=== PATIENT | female | born 1995 | race Caucasian/White ===

== ENCOUNTER → 2017-11-29 14:25 | Observation (INO) ==
[2017-11-29 12:20] LABS: Bilirubin,Urine Negative (Negative); Blood,Urine Negative (Negative); Clarity,Urine Cloudy (Clear); Color,Urine Dark Yellow (Yellow); Glucose,Urine (UA) Normal (Normal); Ketones,Urine Negative (Negative); Leukocyte Esterase,Urine Moderate (Negative); Nitrite,Urine Negative (Negative); PH,Urine 6.5 pH Units (5.0-8.0); Protein,Urine Trace mg/dL (Neg-Trace); Specific Gravity,Urine 1.025 (1.010-1.025); Urobilinogen,Urine Normal (Normal)
[2017-11-29 12:25] LABS: Bacteria,Urine Many per hpf (None-Few); Hyaline Casts,Urine Few per lpf (None-Few); Squamous Epithelial Cell,Urine Many per lpf (None-Few); WBC,Urine 15-30 per hpf (0-3)
[2017-11-29 12:43] LABS: Calcium Oxalate Crystals,Urine Present; RBC,Urine 0-3 per hpf (0-3)
[2017-11-29 12:50] LABS: Amphetamine Screen,Urine Negative ng/mL (Cutoff=1000); Barbiturate Screen,Urine Negative ng/mL (Cutoff=200); Benzodiazepines Screen,Urine Negative ng/mL (Cutoff=200); Cannabinoid Screen,Urine Negative ng/mL (Cutoff = 50); Cocaine Screen,Urine Negative ng/mL (Cutoff= 300); Opiate Screen,Urine Negative ng/mL (Cutoff=300); Phencyclidine Screen,Urine Negative ng/mL (Cutoff=25)
--- NOTE | 2017-11-29 14:22 | OB/GYN Progress Note ---
Date of Encounter: 11/29/17 Time of Encounter: 14:17 - Assessment and Plan (1) 31 weeks gestation of Current Visit: Yes Status: Acute (2) Cramping complicating , antepartum Current Visit: Yes Status: Acute Cervical exam shows cervix closed thick and high, (3) Decreased movement Current Visit: Yes Status: Acute Reactive tracing on monitor, patient started to feel movement in triage. Discharged home with labor and when to return to triage precautions. Patient verbalizes understanding Qualifiers: Fetus number: single or unspecified fetus Trimester: third trimester Qualified Code(s): O36.8130 - Decreased movements, third trimester, not applicable or unspecified Subjective - Subjective Interval history: 31+6 weeks gestation presents to triage with complaints of decreased movement and cramping. Patient said she has had decreased movement over the last 48 hours, cramping began this morning and is intermittent and feels like menstrual cramps, denies using any vaginal bleeding or leaking of fluid Antepartum ROS: movement normal, contractions (Cramping), no loss of fluid , no vaginal bleeding Objective - Vital Signs Vital Signs: Intake and Output 11/28/17 11/29/17 11/29/17 23:59 07:59 15:59 Other: Weight 129 kg Patient Weight 11/29/17 23:59 Weight 129 kg - Exam FHR: auscultation normal FHR comments: Baseline 135 Abdomen: Present: soft, gravid Cervical dilation: Closed/thick/high - Labs Labs: Abnormal lab results Urine Clarity Cloudy (Clear) A 11/29/17 10:59 Ur Leukocyte Esterase Moderate (Negative) H 11/29/17 10:59 Urine Microscopic WBC 15-30 per hpf (0-3) H 11/29/17 10:59 Ur Squamous Epith Cells Many per lpf (None-Few) H 11/29/17 10:59 Urine Bacteria Many per hpf (None-Few) H 11/29/17 10:59 Ur Culture Indicated? NO. (NO) A 11/29/17 10:59
== END | disposition home or self-care (01) ==
LOC: 1NENULAB
PROVIDERS: ADMIT Advanced Practice Midwife; ATTEND Advanced Practice Midwife

== ENCOUNTER 2018-01-11 11:46 | Observation (INO) ==
[2018-01-11 12:33] LABS: Basophils % 0.4 %; Eosinophils # 0.2 K/mcL (0.0-0.6); Eosinophils % 2.3 %; Hematocrit 34.7 % (35.3-44.9); Hemoglobin 11.9 g/dL (11.5-15.4); Immature Granulocytes % 0.5 % (0-4); Lymphocytes # 1.2 K/mcL (0.6-4.6); Lymphocytes % 14.2 %; Mean Corpuscular HGB Conc 34.3 g/dL (31.6-35.5); Mean Corpuscular Hemoglobin 29.2 pg (28.0-33.3); Mean Platelet Volume 12.1 fL (9.4-12.4); Monocytes # 0.6 K/mcL (0.0-1.3); Monocytes % 6.6 %; Neutrophils # 6.4 K/mcL (1.6-8.9); Platelet Count 168 K/mcL (140-400); Red Blood Count 4.08 M/mcL (3.82-4.97); Red Cell Distribution Width 13.3 % (11.5-14.5)
[2018-01-11 12:52] LABS: Alanine Aminotransferase 9 Units/L (7-52); Aspartate Amino Transferase 10 Units/L (13-39); BUN/Creatinine Ratio 14 (6-26); Blood Urea Nitrogen 7 mg/dL (6-20); Lactate Dehydrogenase 112 Units/L (140-271); Protein/Creatinine Ratio,Urine 0.1 mg/mg (0.00-0.20); Uric Acid 4.8 mg/dL (2.3-7.6); eGFR For Non-African Americans > 60 (> 60)
[2018-01-11 12:53] LABS: Amphetamine Screen,Urine Negative ng/mL (Cutoff=1000); Barbiturate Screen,Urine Negative ng/mL (Cutoff=200); Benzodiazepines Screen,Urine Negative ng/mL (Cutoff=200); Cannabinoid Screen,Urine Negative ng/mL (Cutoff = 50); Cocaine Screen,Urine Negative ng/mL (Cutoff= 300); Opiate Screen,Urine Negative ng/mL (Cutoff=300); Phencyclidine Screen,Urine Negative ng/mL (Cutoff=25)
--- NOTE | 2018-01-11 15:03 | OB/GYN Progress Note ---
Date of Encounter: 01/11/18 Time of Encounter: 10:45 - Assessment and Plan (1) 38 weeks gestation of Current Visit: Yes Status: Acute Continue care with Dr. Garcia as scheduled Labor precautions given Discharge home (2) headache in third trimester Current Visit: Yes Status: Acute Resolved with Tylenol (3) Vision changes Current Visit: Yes Status: Acute Resolved spontaneously (4) Hypertension affecting in third trimester Current Visit: Yes Status: Acute PIH evaluation-negative Subjective - Subjective Principal diagnosis: High blood pressure in Interval history: Ms. Petersen is a 22yo female at 38 weeks 0 days gestation who presents with c/o elevated BP while at work today. She reports she has had a RIVERA x 2 days that is relieved with tylenol and today began seeing spots in her vision while working. She states a co-worker took her BP with a wrist cuff and the measurement was 145/101. Manual BP was 135/95. States she called Dr. Garcia who advised her to be seen. She endorses good fm and denies ctx, lof, vb. She states her has been uncomplicated. Antepartum ROS: new complaints (RIVERA/vision changes), movement normal, no loss of fluid, no vaginal bleeding, no contractions Objective - Vital Signs Vital Signs: Intake and Output 01/10/18 01/11/18 01/11/18 23:59 07:59 15:59 Other: Weight 136.395 kg Patient Weight 01/11/18 23:59 Weight 136.395 kg - Exam FHR: category 1 FHR comments: Baseline 140 Moderate variability Accelerations present 15x15 No decelerations FHR Category I No toco activity Auscultation: bilateral: normal Abdomen: Present: normal appearance, soft, gravid Uterus: Present: normal, firm - Labs Labs: Abnormal lab results Hct 34.7 % (35.3-44.9) L 01/11/18 12:15 Creatinine 0.50 mg/dL (0.60-1.20) L 01/11/18 12:15 AST 10 Units/L (13-39) L 01/11/18 12:15 Lactate Dehydrogenase 112 Units/L (140-271) L 01/11/18 12:15 Urine Total Protein 25 mg/dL (1-14) H 01/11/18 12:15
== END 2018-01-11 13:10 | disposition home or self-care (01) ==
LOC: 1NENULAB
PROVIDERS: ADMIT Student in an Organized Health Care Education/Training Program; ATTEND Student in an Organized Health Care Education/Training Program

== ENCOUNTER 2018-01-24 23:00 | Inpatient (IN) ==
[2018-01-25] MEDS ORDERED: miSOPROStol 25 MCG TABLET VG PRN (00:38)
[2018-01-25] MEDS ORDERED: Naloxone 0.4 MG/ML INJ IVP PRN ×2 (00:44→17:53)
[2018-01-25] MEDS ORDERED: Famotidine 20 MG/2 ML VIAL IVP PRN (00:44)
[2018-01-25] MEDS ORDERED: Metoclopramide 10 MG/2 ML VIAL IVP PRN (00:44)
[2018-01-25 01:10] LABS: Basophils % 0.2 %; Eosinophils # 0.2 K/mcL (0.0-0.6); Eosinophils % 1.1 %; Hematocrit 34.4 % (35.3-44.9); Hemoglobin 11.5 g/dL (11.5-15.4); Immature Granulocytes % 0.4 % (0-4); Lymphocytes # 1.7 K/mcL (0.6-4.6); Lymphocytes % 12.8 %; Mean Corpuscular HGB Conc 33.4 g/dL (31.6-35.5); Mean Corpuscular Hemoglobin 28.4 pg (28.0-33.3); Mean Corpuscular Volume 84.9 fL (83.0-100.0); Mean Platelet Volume 12.4 fL (9.4-12.4); Monocytes # 0.9 K/mcL (0.0-1.3); Monocytes % 6.8 %; Neutrophils # 10.4 K/mcL (1.6-8.9); Platelet Count 160 K/mcL (140-400); Red Blood Count 4.05 M/mcL (3.82-4.97); Red Cell Distribution Width 13.9 % (11.5-14.5); Segmented Neutrophils % 78.7 %
[2018-01-25 01:23] LABS: Amphetamine Screen,Urine Negative ng/mL (Cutoff=1000); Barbiturate Screen,Urine Negative ng/mL (Cutoff=200); Benzodiazepines Screen,Urine Negative ng/mL (Cutoff=200); Cannabinoid Screen,Urine Negative ng/mL (Cutoff = 50); Cocaine Screen,Urine Negative ng/mL (Cutoff= 300); Opiate Screen,Urine Negative ng/mL (Cutoff=300); Phencyclidine Screen,Urine Negative ng/mL (Cutoff=25)
[2018-01-25 01:33] LABS: Alanine Aminotransferase 8 Units/L (7-52); Aspartate Amino Transferase 9 Units/L (13-39); BUN/Creatinine Ratio 18 (6-26); Blood Urea Nitrogen 9 mg/dL (6-20); Lactate Dehydrogenase 119 Units/L (140-271); Uric Acid 4.2 mg/dL (2.3-7.6); eGFR For Non-African Americans > 60 (> 60)
[2018-01-25] MEDS: Ringers Solution, Lactated 1,000 ML IVC SCH ×2 (01:37→14:07)
--- NOTE | 2018-01-25 03:49 | OB/GYN History & Physical ---
Date of Encounter: 01/25/18 Time of Encounter: 03:43 Assessment and Plan (1) Elective induction of labor planned Current visit: Yes Status: Acute 1. Patient baseline heart rate initially in the 150s with accelerations into the 170s began experiencing sustained tachycardia into the 170s and was resolved with 500 mL bolus of lactated Ringer's, heart rates resolved currently back to the 150s range. We will continue to monitor. Nurse optical design engineer Sharda Johnson made aware as per information obtained from L&D nurse. 2. We will continue to monitor tocometry, as well as heart tones, dilation, effacement, and station over the next 4 hours with Wesley bulb placement after that time if indicated. 3. Dr. Garcia is aware of patient admission to labor and delivery. (2) 40 weeks gestation of Current visit: Yes Status: Acute (3) Marijuana abuse Current visit: Yes Status: Acute (4) Tobacco abuse Current visit: Yes Status: Acute History of Present Illness Chief complaint: Induction of labor HPI: Ms. Petersen is a 22 year old female () presenting to [place] labor and delivery for induction of labor at 39 weeks and 6 days of gestational age. The patient has a history of spontaneous in June 2015 from unknown causes at 6 weeks of gestational age. Current has been complicated by "a clot on the uterus", which has since resolved as well as marijuana and tobacco use. The patient's most recent toxicology screen was negative. This patient is known to Dr. Garcia and has been followed by [place] [facility] for care. -The patient reports good movement, as per usual. She denies vaginal bleeding, abnormal discharge or fluid leakage. 1. Blood type is A- 2. GBS negative, hepatitis B antigen/antibody negative, HIV antigen/antibody combo nonreactive 3. Rubella IgG antibody positive, HPV obtained from the cervix/endocervix is positive, varicella-zoster virus negative, all other serologies negative. Past Med Surg Social Fam HX - Past Medical History Source: patient, nursing notes reviewed Medical history: other ("Ear tubes") Additional medical history: Anxiety. Depression. Psychiatric history: no psych history - Past Surgical History Surgical History: other Additional surgical history: T&A - Social History Smoking Status: Current every day smoker Packs per day: 5-6 cigarettes per day Smokeless Tobacco Status: No Alcohol use: none Drug use: none - Family History Mother History Unknown: Yes Adopted: Yes Name: Breanna Scott Age: 44 Family Member Ethnicity: Non- Living Status: Still Living Hx Family Cardiac Disorders: No Hx Family Respiratory Disorders: No Hx Family Cancer: No Hx Family GI Disorders: No Hx Family Genitourinary Disorders: No Hx Family Endocrine Disorder: No Hx Family Musculoskeletal Disorders: No Hx Family Neuromuscular Disorders: No Hx Family Neurologic Disorders: No Hx Family HEENT Disorders: No Hx Family Autoimmune Disorders: No Hx Family Reproductive Disorders: No Hx Family Psychosocial Disorders: No Hx Family Medical Disorders: No Obstetrical History - Pregnancies : 2 Para: 1 Term: 0 : 0 Ab's: 1 Livin - History/Complications History/Complications: Patient has a history of spontaneous in June 2015 from unknown causes at 6 weeks of gestational age. Medications and Allergies Vit Calc,Iron,Folic [ Vitamins] 1 each PO DAILY #30 tablet [Rx] 3 Allergy/AdvReac Type Severity Reaction Status Date / Time Amoxicillin [From Augmentin] Allergy Swelling Verified 07/13/17 05:18 of Lip/Tongue/Throat clavulanic acid Allergy Swelling Verified 07/13/17 05:18 [From Augmentin] of Lip/Tongue/Throat Review of System OB - Constitutional Constitutional ROS IM: headache(s) (Patient states that her headaches have been mild and intermittent and resolved with Tylenol.), no chills, no fever(s), no weight loss - Cardiovascular Cardiovascular: edema, pedal edema (Patient admits to intermittent, painless, bilateral lower extremity edema which is resolved with elevation of the lower extremity. Patient denies any associated numbness or paresthesias), no chest pain, no dyspnea, no syncope - Respiratory Respiratory: no cough, no dyspnea, no hemoptysis - Gastrointestinal Gastrointestinal: nausea, no abdominal pain, no hematemesis, no hematochezia, no melena, no vomiting - Genitourinary Genitourinary: no abnormal vaginal bleeding, no hematuria - Muscloskeletal Musculoskeletal: bilateral: ankle swelling - Neurological Nerological: headache(s), no disequilibrium, no dizziness, no numbness, no paresthesias, no tingling, no other visual disturbances Exam - Constitutional Constitutional: well developed, well nourished, no acute distress, morbidly obese - HEENT HEENT: EOMI, PERRL, Normocephaly, Mucus Membranes Moist - Lungs Respiratory exam: CTAB - Cardiovascular Cardiovascular exam: RRR, +S1, +S2 - Abdomen Abdomen: Present: bowel sounds normal, gravid. Absent: non tender, diffuse tenderness, guarding noted - Extremities Extremities exam: pedal edema (Bilateral nonpitting edema noted in the patient' s lower extremities), warm, radial pulses palpable and symmetrical (Patient pulse, motor, and sensation intact in all 4 extremities.) - Cervix Dilation: 1 Effacement: 60 Station: -2 (Per nurses assessment) Results Result Diagrams: 01/25/18 00:45 01/25/18 00:45 Abnormal lab results WBC 13.3 K/mcL (4.3-11.1) H 01/25/18 00:45 Hct 34.4 % (35.3-44.9) L 01/25/18 00:45 Neutrophils # 10.4 K/mcL (1.6-8.9) H 01/25/18 00:45 Creatinine 0.50 mg/dL (0.60-1.20) L 01/25/18 00:45 AST 9 Units/L (13-39) L 01/25/18 00:45 Lactate Dehydrogenase 119 Units/L (140-271) L 01/25/18 00:45 All other labs normal. - VTE Reasons for not Prescribing Prophylaxis: Treatment not Indicated - Low risk for VTE - Attending Attestation I examined this patient and my medical decision-making was reviewed with the Resident Physician. I agree with the documented findings, disposition and treatment plan as described except to the extent set forth below. Ata Garcia
--- NOTE | 2018-01-25 05:47 | OB Labor Progress Note ---
Date of Encounter: 01/25/18 Time of Encounter: 05:45 Labor Progress Note - Subjective Subjective: Patient resting comfortably in bed. Discussed POC with patient. Patient denies any questions or concerns. - Cervix Cervix: 1.5/60/-2 - Heart Tones Heart Tones: 150 bpm moderate variability - [place]: 1.5-2.5 min apart - Interventions Interventions: SVE, Munguia balloon placed for IOL. 60cc sterile water placed in munguia balloon. [place] taped to patient's leg. Patient tolerated well. - Plan Plan: Continue labor management. Will start Pitocin for effective labor pattern
[2018-01-25] MEDS ORDERED: Oxytocin 20 units/ LR 1000 mL 20 UNIT/1,000 ML BAG IVC SCH (06:00)
--- NOTE | 2018-01-25 09:20 | OB Labor Progress Note ---
Date of Encounter: 01/25/18 Time of Encounter: 09:00 Labor Progress Note - Subjective Subjective: Patient's Wesley catheter is out feeling contractions but not that uncomfortable - Cervix Cervix: 3/80/-3 AROM clear fluid noted - Heart Tones Heart Tones: scalp monitor placed heart tones 140s reactive - Carrizo Carrizo: IUPC placed contractions are every 2 minutes - Plan Plan: Plan is to anticipate normal spontaneous vaginal delivery
--- NOTE | 2018-01-25 11:33 | Anesthesia Evaluation PreOp ---
Date of Encounter: 01/25/18 Time of Encounter: 11:24 - Past History Planned Operation: NICK Cardiac History: Denies any Significant Hx Pulmonary History: Smoker (1pk/day for 5years) BOBBIN PRESSER History: Denies Any Significant HX Other Medical History: Other (hx of "clot on uterus" with this which has since resolved. Morbid obesity BMI 53) Anesthesia History: No Prior Anesthetic Complications, Past Anesthesia (tonsils and adenoids without complication) : Yes Alcohol Use: none Drug use: none Medications and Allergies Vit Calc,Iron,Folic [ Vitamins] 1 each PO DAILY #30 tablet [Rx] 3 Allergy/AdvReac Type Severity Reaction Status Date / Time Amoxicillin [From Augmentin] Allergy Swelling Verified 07/13/17 05:18 of Lip/Tongue/Throat clavulanic acid Allergy Swelling Verified 07/13/17 05:18 [From Augmentin] of Lip/Tongue/Throat - Meds/Allergy Pre-op Review Medications Reviewed: Yes Allergies Reviewed: Yes Beta Blockers on Current Med List: No Anesthesia Results - Labs 01/25/18 00:45 01/25/18 00:45 Anesthesia Exam BP 131/79 P 100 R 16 T 97.0 Height: 5'4" Weight: 140kg NPO (# of Hours): 12 hrs solids, currently on clears Pain Scale: 0 Pain Scale Used: Numeric (1 - 10) - HEENT Pupil (Motor): Pupils equal Mallampati: II Teeth: Normal Oral Opening: Greater than 3 - BOBBIN PRESSER LOC: Oriented BOBBIN PRESSER Motor: Normal RUE, Normal LUE, Normal RLE, Normal LLE, Normal Face BOBBIN PRESSER Sensory: Normal: RUE, LUE, RLE, LLE, Face - Cardiac Rhythm: Regular Murmur: None JVD: No Carotid Bruit: No - Pulmonary Breath Sounds: bilateral Clear Respiratory Effort: Symmetrical Anesthesia Assess/Plan ASA Score: 3 Modified [place] Scale for Level of Consciousness: Cooperative, oriented, and tranquil Anesthetic Plan: Regional Autologous Blood: No Monitoring Plan: Standard Monitors Recovery Plan: Other
[2018-01-25] MEDS: *HR* Nalbuphine 10 MG/ML AMPUL IVP PRN ×2 (12:14→15:17)
--- NOTE | 2018-01-25 14:27 | OB Labor Progress Note ---
Date of Encounter: 01/25/18 Time of Encounter: 14:25 Labor Progress Note - Subjective Subjective: Patient states feeling a lot of pressure but tolerating the contractions still. - Cervix Cervix: 3-4/80/-3 - Heart Tones Heart Tones: heart tones 140s reactive - [place]: Contractions every 2 minutes not adequately yet - Plan Plan: Continued increasing Pitocin plan is to anticipate vaginal delivery. Once she starts having adequate contractions. Following the Birch's curve if she does not make appropriate change we did discuss with her about possible section.
--- NOTE | 2018-01-25 17:34 | OB Labor Progress Note ---
Date of Encounter: 01/25/18 Time of Encounter: 17:33 Labor Progress Note - Subjective Subjective: The patient getting uncomfortable not ready for epidural yet - Cervix Cervix: 4/90/-2 - Heart Tones Heart Tones: heart tones 140s reactive - [place]: IUPC placed contractions every 2 minutes - Plan Plan: Continue Pitocin planus anticipate vaginal delivery
[2018-01-25] MEDS ORDERED: EPHEDrine 50 MG/ML VIAL IVP PRN (17:53)
[2018-01-25] MEDS ORDERED: Bupivacaine-MPF 0.25% 10 ML VIAL EP ONE (17:53)
[2018-01-25] MEDS ORDERED: *HR* FentaNYL (PF) 100 MCG/2 ML VIAL EP ONE (17:53)
[2018-01-25] MEDS ORDERED: Ondansetron 4 MG/2 ML VIAL IVP PRN (17:53)
[2018-01-25] MEDS ORDERED: Lidocaine -MPF 1% 5 ML AMPUL ONE (17:57)
[2018-01-25] MEDS ORDERED: Epidural Premix (fent/bupiv) 110 ML EP SCH (18:00)
--- NOTE | 2018-01-25 18:39 | Anesthesia Procedures ---
Date of Encounter: 01/25/18 Time of Encounter: 18:02 Procedures: Anesthesia - Epidural/Spinal Patient ID/Chart reviewed: Yes Patient examined: Yes OB Eval: Gestational age: 39 OB Eval: : 2 OB Eval: Hx Para: 0 OB Eval: Dilated at (cm): 4 OB Eval: Contractions: Non-stressed pattern Consent Obtained: Yes Supplemental Oxygen: None/Room Air Site Prep: Aseptic Technique, Sterile prep and drape, Povidone-Iodine 1% Patient position: upright Local Anesthetic: Lidocaine 1% Amount of Local Anesthetic used: 3 Touhy Needle Gauge: 18 Touhy Needle Depth (cm): 8 Catheter Depth at Skin (cm): 16 Test Dose (1.5% Lido + Epi): Volume given (mls): 3 Test Dose Result: Negative Loading Dose: 0.25% Marcaine (mls): 7 Loading Dose: Fentanyl (mcg): 100 Loading Dose Administered: Thru Catheter Infusion Med: 0.125% Bupivacaine w/ 2 mcg/ml Fentanyl Infusion Rate (mls/hr): [address]: Tegaderm, Tape Interspace Used: L3-L4 Loss of Resistance (KETAN): Yes Blood: No CSF: No Paresthesia: No Procedure: NICK placed in upright position 2nd pass successful. No immediate complications noted. Vitals + FHT's: 1802 BP 152/93 P 116 R 18 T 98.0 1830 BP 133/76 P 96 R 16 FHT 130s
--- NOTE | 2018-01-25 20:13 | OB Labor Progress Note ---
Date of Encounter: 01/25/18 Time of Encounter: 20:12 Labor Progress Note - Subjective Subjective: Patient comfortable with epidural - Cervix Cervix: 4/80/-2 - Heart Tones Heart Tones: heart tones 140s reactive - [place] Gardner: Contractions every 2 minutes - Plan Plan: Continue current care and anticipate vaginal delivery
--- NOTE | 2018-01-26 00:52 | OB Labor Progress Note ---
Date of Encounter: 01/26/18 Time of Encounter: 00:49 Labor Progress Note - Subjective Subjective: Patient getting frustrated she is not progressing requesting a section. Did inform her we need to give her more time and get her contractions more adequate. - Cervix Cervix: 4/80/-1 - Heart Tones Heart Tones: heart tones 140s reactive - [place]: Contractions every 2 minutes not quite adequate yet range 150-200 [place] units. We will continue to increase Pitocin - Plan Plan: Increase Pitocin until contractions are adequate. We will reexamine and approximately 2 hours and 4 hours if she has made no additional change we will discuss section at that time.
[2018-01-26] MEDS ORDERED: Clindamycin 900 MG/50 ML 900 MG/50 ML IV.SOLN IVPB SCH (02:00)
--- NOTE | 2018-01-26 05:20 | OB Labor Progress Note ---
Date of Encounter: 01/26/18 Time of Encounter: 05:18 Labor Progress Note - Subjective Subjective: The patient still comfortable but has made no additional cervical change with adequate contractions. We have maxed out the Pitocin at 30 mU/m and patient is still 4 cm -2-1. Patient is tired requesting section. Since patient has made no progression and we can no longer increase the Pitocin I agreed that we should proceed on with section for failure to progress - Cervix Cervix: 4/80/-1 - Heart Tones Heart Tones: heart tones 140s reactive - [place]: Contractions every 2 minutes adequate greater than 200 [place] units - Plan Plan: Pitocin has been turned off patient will be prepped for a primary low transverse section
--- NOTE | 2018-01-26 05:22 | OB/GYN Procedure Note ---
Section - Date of procedure: 01/26/18 Preop diagnosis: other (Intrauterine at 39 and 6 and cervix, failed induction of labor, arrest of descent, cephalopelvic disproportion) Post-op diagnosis: same Procedure: primary low transverse Surgeon: Woo Dahl Blood Loss: 500 Was there an safety admin assistant present: No Anesthesiologist: Mackenzie Flynn Manager Environmental Affairs: Harmeet Mcduffie Anesthesia Type: Epidural section complications: none Disposition: L&D Recovery Room - Infant (s) Infant A Delivery Date: 01/26/18 Delivery Time: 06:11 Presentation: vertex Position: KYLIE Route of delivery: other ( section) Gender: Female Viability: Viable Pounds: 6 Ounces: 12 Gram Weight: 3.06 kg at 1 minute: 9 at 5 minutes: 9 Shoulder Dystocia: not encountered Specimens collected: cord blood Placenta: spontaneous Cord: 3 umbilical vessels - Narrative Narrative: Patient is a 22-year-old 1 para 0 at 39-6/7 weeks on admission who presented for induction of labor secondary to term with early signs of preeclampsia. Patient had started to have significant amount of swelling is complaining of headaches blurred vision and scotomata and blood pressures were starting to become elevated we decided around her due date would go ahead and bring her in for an induction. Patient was brought in on the for Cytotec induction. Cytotec had been placed after approximately 4-5 hours a Wesley catheter was placed with 60 mL. This allowed approximately 3 hours later that the patient was only 3 cm at this point because of patient's body habitus we had difficulty monitoring the patient and she was artificial ruptured and internalized. Patient was started on Pitocin. Patient received an epidural when she got to 3-4 minutes and patient never progressed past this point. Patient did receive antibiotics at approximately 16 hours of rupture and we maxed out of Pitocin at 30 mU/m. Patient had arrested at 4 cm and -1 station over 6-8 hours and was requesting section. Because she had not progressed and we could not increase the Pitocin any further with adequate contractions noted a section was called. Procedure: Patient was taken to the operating room where epidural anesthesia was found adequate. She was placed in the dorsal supine position with a leftward tilt prepped and draped in usual fashion. Patient's abdomen was taped up then a Pfannenstiel incision was made higher up on the pannus and carried down to the underlying tissue until we identified the fascia. This was nicked in the midline extended laterally with the Lazaro scissors. The superior and inferior edges of the fascia grasped tented up and dissected off the rectus muscles. The rectus muscles were in the midline parietal peritoneum was identified tented up and entered sharply. This was extended superiorly and inferiorly with Metzenbaum scissors. The bladder blade was inserted the vesicouterine peritoneum was identified tented up and entered sharply. This is extended laterally the bladder flap was created digitally. The lower uterine segment was incised with scalpel and extended laterally with digital manipulation. Membranes were then ruptured infant's head was then brought up through the incision followed by the infant. The cord was clamped and cut infant was handed off to waiting pediatric team. Cord blood was collected placenta was then delivered spontaneously with a three-vessel cord. An padma self-retaining retractor was then placed into the abdomen the uterus was then cleaned of all clots and debris then the lower uterine segment was closed using an 0 Vicryl in a running locking stitch by a 2 layer closure. Good hemostasis was noted. The gutters were cleaned of all clots and debris then copiously irrigated. No active bleeding was noted, the retractor was then removed and the fascia was closed using a #1 stratafix in a running stitch, the subcutaneous tissue was closed using an 0 chromic in a running stitch and the skin was closed using a 4-0 Vicryl subcuticular and. All needles and sponge counts were correct 3 she did receive preoperative antibiotics. A RISHABH dressing was applied at the end of the case.
[2018-01-26] MEDS ORDERED: *HR* FentaNYL (PF) 100 MCG/2 ML VIAL ONE (05:46)
[2018-01-26] MEDS ORDERED: *HR* Phenylephrine 10 MG/ML VIAL ONE (06:00)
[2018-01-26] MEDS ORDERED: *HR* Oxytocin 10 UNIT/ML VIAL IM ONE (06:00)
[2018-01-26] MEDS ORDERED: Ondansetron 4 MG/2 ML VIAL ONE (06:07)
[2018-01-26] MEDS ORDERED: Dexamethasone 4 MG/ML VIAL ONE (06:07)
[2018-01-26] MEDS ORDERED: Acetaminophen IV 1,000 MG/100 ML INFUS..BTL IVPB STA (06:11)
[2018-01-26] MEDS ORDERED: *HR* HYDROmorphone (PF) 1 MG/ML SYRINGE IVP PRN (06:13)
[2018-01-26] MEDS ORDERED: *HR* OxyCODONE/APAP 5/325 TABLET PO PRN (06:13)
[2018-01-26] MEDS ORDERED: Ibuprofen 400 MG TABLET PO PRN (06:13)
[2018-01-26] MEDS ORDERED: *HR* Morphine 2 MG/ML SYRINGE IVP PRN (06:13)
[2018-01-26] MEDS ORDERED: *HR* Morphine Sulfate/PF 10 MG/10 ML AMPUL ONE (06:57)
[2018-01-26] MEDS ORDERED: Metoclopramide 10 MG/2 ML VIAL IVP PRN (07:53)
[2018-01-26] MEDS ORDERED: Sennosides 8.6 MG TABLET PO PRN (07:53)
[2018-01-26] MEDS ORDERED: Simethicone 80 MG TAB.CHEW PO PRN (07:53)
[2018-01-26] MEDS ORDERED: Ondansetron 4 MG/2 ML VIAL IVP PRN (07:53)
[2018-01-26] MEDS ORDERED: Naloxone 0.4 MG/ML INJ IVP PRN (07:53)
[2018-01-26] MEDS ORDERED: Ringers Solution, Lactated 1,000 ML IVC SCH (07:53)
[2018-01-26] MEDS ORDERED: Oxytocin 20 units/ LR 1000 mL 20 UNIT/1,000 ML BAG IVC SCH ×2 (07:53)
[2018-01-26] MEDS ORDERED: Azithromycin 500 MG in D5% in Water 250 ML IVPB SCH (08:00)
[2018-01-26] MEDS ORDERED: NON-FORMULARY MEDICATION 1 EACH EACH (Prenatal Vit Calc,Iron,Folic [Prenatal Vitamins] 1 E PO SCH (09:00)
[2018-01-26] MEDS ORDERED: Rho Immune Globulin 1,500 UNIT SYRINGE IM ONE (20:30)
[2018-01-26] MEDS: Ibuprofen 600 MG TABLET PO PRN (20:46)
[2018-01-27] MEDS: Ibuprofen 600 MG TABLET PO PRN ×4 (05:10→23:40)
[2018-01-27] MEDS: *HR* OxyCODONE/APAP 5/325 TABLET PO PRN ×5 (05:11→23:39)
[2018-01-27 06:53] LABS: Basophils % 0.4 %; Eosinophils # 0.1 K/mcL (0.0-0.6); Eosinophils % 0.7 %; Hemoglobin 10.4 g/dL (11.5-15.4); Immature Granulocytes % 0.4 % (0-4); Lymphocytes # 1.2 K/mcL (0.6-4.6); Lymphocytes % 10.6 %; Mean Corpuscular HGB Conc 33.5 g/dL (31.6-35.5); Mean Corpuscular Hemoglobin 28.7 pg (28.0-33.3); Mean Corpuscular Volume 85.6 fL (83.0-100.0); Mean Platelet Volume 12.3 fL (9.4-12.4); Monocytes # 0.7 K/mcL (0.0-1.3); Monocytes % 6.3 %; Platelet Count 165 K/mcL (140-400); Red Blood Count 3.62 M/mcL (3.82-4.97); Red Cell Distribution Width 14.3 % (11.5-14.5); Segmented Neutrophils % 81.6 %
--- NOTE | 2018-01-27 08:26 | OB/GYN Progress Note ---
Date of Encounter: 01/27/18 Time of Encounter: 08:24 - Assessment and Plan (1) Elective induction of labor planned Current Visit: No Status: Acute 1. Patient baseline heart rate initially in the 150s with accelerations into the 170s began experiencing sustained tachycardia into the 170s and was resolved with 500 mL bolus of lactated Ringer's, heart rates resolved currently back to the 150s range. We will continue to monitor. Nurse condenser setter Sharda Johnson made aware as per information obtained from L&D nurse. 2. We will continue to monitor tocometry, as well as heart tones, dilation, effacement, and station over the next 4 hours with Wesley bulb placement after that time if indicated. 3. Dr. Garcia is aware of patient admission to labor and delivery. (2) 40 weeks gestation of Current Visit: Yes Status: Acute (3) Marijuana abuse Current Visit: Yes Status: Acute (4) Tobacco abuse Current Visit: Yes Status: Acute (5) Status post primary low transverse section Current Visit: Yes Status: Acute We will advance diet we will switch Zithromax 2 by mouth and encourage ambulation. The patient stable and afebrile will discharge home in a.m. Subjective - Subjective Interval history: Patient is doing well this morning catheter is out she has been to the bathroom to urinate has ambulated and tolerating diet. Patient still having some pain but is tolerable. Patient reports: appetite normal, voiding normally, pain well controlled, ambulating normally [place]: doing well Objective - Vital Signs Latest vital signs: Vital Signs Temp Pulse Resp BP Pulse Ox 01/27/18 05:06 98.3 F 115 14 130/81 95 01/27/18 00:05 98.2 F 104 20 107/64 96 01/26/18 20:10 98.7 F 110 20 128/84 96 01/26/18 17:05 16 01/26/18 17:04 98.6 F 113 14 128/80 96 01/26/18 13:00 16 01/26/18 12:45 98.8 F 113 12 114/71 95 01/26/18 11:40 98.7 F 110 16 120/84 95 01/26/18 11:30 98.7 F 110 16 120/84 95 01/26/18 10:35 97.8 F 110 16 114/61 95 01/26/18 10:30 97.8 F 110 14 114/61 95 01/26/18 10:03 98.0 F 100 16 130/76 01/26/18 10:00 98.4 F 98 18 116/65 97 01/26/18 09:31 16 01/26/18 09:30 98.0 F 100 16 130/76 95 Intake and Output 01/26/18 01/27/18 01/27/18 23:59 07:59 15:59 Intake Total 1200 / 1200 Output Total 1000 / 1000 1200 / 1200 Balance -1000 / -1000 0 / 0 Intake: Oral 200 / 200 Other 1000 / 1000 Output: Catheter 1000 / 1000 1200 / 1200 Other: Weight 139.8 kg 134.717 kg Patient Weight 01/27/18 23:59 Weight 134.717 kg - Exam Lungs: bilateral: normal Chest: Normal S1, Normal S2 Extremities: Present: normal Abdomen: Present: normal appearance, soft Incision: Present: normal, dry, intact Uterus: Present: normal - Labs Labs: Laboratory Results - last 24 hr 01/26/18 01/27/18 08:31 06:32 WBC 11.1 RBC 3.62 L Hgb 10.4 L Hct 31.0 L MCV 85.6 MCH 28.7 MCHC 33.5 RDW 14.3 Plt Count 165 MPV 12.3 Immature Gran % 0.4 Seg Neutrophils % 81.6 Lymphocytes % 10.6 Monocytes % 6.3 Eosinophils % 0.7 Basophils % 0.4 Neutrophils # 9.0 H Lymphocytes # 1.2 Monocytes # 0.7 Eosinophils # 0.1 Basophils # 0.0 Screen NEGATIVE Baby's Blood Type A RH POSITIVE Mother's Blood Type A RH NEGATIVE Rhogam Indicated YES Rhogam Req for Mother 1
[2018-01-27] MEDS: Azithromycin 250 MG TABLET PO SCH (09:56)
[2018-01-27] MEDS: Prenatal Vit/FA 1 EACH TABLET PO SCH (09:56)
[2018-01-27 20:05] VITALS: BP 125/82
[2018-01-28] MEDS: *HR* OxyCODONE/APAP 5/325 TABLET PO PRN (05:20)
[2018-01-28] MEDS: Azithromycin 250 MG TABLET PO SCH (08:00)
[2018-01-28] MEDS: Ibuprofen 600 MG TABLET PO PRN (08:01)
[2018-01-28] MEDS: Prenatal Vit/FA 1 EACH TABLET PO SCH (08:10)
--- NOTE | 2018-01-28 09:24 | Discharge Summary ---
Date of Encounter: 01/28/18 Time of Encounter: 09:16 - Discharge Diagnosis (1) Status post primary low transverse section Priority: Primary Status: Acute Comments: S/P Delivery Day 2 Pain is well controlled Lochia is light and without clots VSS Tolerating regular diet; voiding and passing flatus Bottle feeding Discharge home today - Discharge Medications Prescriptions: Ibuprofen [Motrin] 600 mg PO Q6HR PRN #30 tablet PRN Reason: Cramping Azithromycin [Zithromax] 250 mg PO DAILY #5 tablet Docusate [Colace] 100 mg PO BID PRN #30 capsule PRN Reason: Constipation Ferrous Sulfate 325 mg PO DAILY #90 tablet OxyCODONE/APAP 5/325 [Percocet 5/325 MG] 1 each PO Q6H PRN 5 Days #20 tablet PRN Reason: Moderate pain 4-6 Home Medications: Azithromycin [Zithromax] 250 mg PO DAILY #5 tablet 01/28/18 [Rx] Docusate [Colace] 100 mg PO BID PRN #30 capsule 01/28/18 [Rx] Ferrous Sulfate 325 mg PO DAILY #90 tablet 01/28/18 [Rx] Ibuprofen [Motrin] 600 mg PO Q6HR PRN #30 tablet 01/28/18 [Rx] OxyCODONE/APAP 5/325 [Percocet 5/325 MG] 1 each PO Q6H PRN 5 Days #20 tablet [Rx] Vit/FA 1 each PO DAILY tablet 01/28/18 [Rx] Simethicone [Gas-X] 80 mg PO TID PRN tab.chew 01/28/18 [Rx] Allergies/Adverse Reactions: 3 Allergy/AdvReac Type Severity Reaction Status Date / Time Amoxicillin [From Augmentin] Allergy Swelling Verified 07/13/17 05:18 of Lip/Tongue/Throat clavulanic acid Allergy Swelling Verified 07/13/17 05:18 [From Augmentin] of Lip/Tongue/Throat Data Procedures and tests throughout hospitalization: Laboratory Tests 01/25/18 01/25/18 01/25/18 00:45 00:45 00:45 WBC 13.3 H RBC 4.05 Hgb 11.5 Hct 34.4 L MCV 84.9 MCH 28.4 MCHC 33.4 RDW 13.9 Plt Count 160 MPV 12.4 Immature Gran % 0.4 Seg Neutrophils % 78.7 Lymphocytes % 12.8 Monocytes % 6.8 Eosinophils % 1.1 Basophils % 0.2 Neutrophils # 10.4 H Lymphocytes # 1.7 Monocytes # 0.9 Eosinophils # 0.2 Basophils # 0.0 BUN 9 Creatinine 0.50 L Est GFR ( Amer) > 60 Est GFR (Non-Af Amer) > 60 BUN/Creatinine Ratio 18 Uric Acid 4.2 AST 9 L ALT 8 Lactate Dehydrogenase 119 L Urine Opiates Screen Negative Ur Barbiturates Screen Negative Ur Phencyclidine Scrn Negative Ur Amphetamines Screen Negative U Benzodiazepines Scrn Negative Urine Cocaine Screen Negative U Marijuana (THC) Screen Negative Ur Drug Screen Interp See Below Screen Baby's Blood Type Mother's Blood Type Rhogam Indicated Rhogam Req for Mother 01/26/18 01/27/18 08:31 06:32 WBC 11.1 RBC 3.62 L Hgb 10.4 L Hct 31.0 L MCV 85.6 MCH 28.7 MCHC 33.5 RDW 14.3 Plt Count 165 MPV 12.3 Immature Gran % 0.4 Seg Neutrophils % 81.6 Lymphocytes % 10.6 Monocytes % 6.3 Eosinophils % 0.7 Basophils % 0.4 Neutrophils # 9.0 H Lymphocytes # 1.2 Monocytes # 0.7 Eosinophils # 0.1 Basophils # 0.0 BUN Creatinine Est GFR ( Amer) Est GFR (Non-Af Amer) BUN/Creatinine Ratio Uric Acid AST ALT Lactate Dehydrogenase Urine Opiates Screen Ur Barbiturates Screen Ur Phencyclidine Scrn Ur Amphetamines Screen U Benzodiazepines Scrn Urine Cocaine Screen U Marijuana (THC) Screen Ur Drug Screen Interp Screen NEGATIVE Baby's Blood Type A RH POSITIVE Mother's Blood Type A RH NEGATIVE Rhogam Indicated YES Rhogam Req for Mother 1 Date of admission: 01/24/18 23:02 Primary care physician: Juan Francisco Cortez MD Discharging clinician: Lynsey Roman Anticipated date of discharge: 01/28/18 - Patient Status Disposition: Home, Self-Care Condition: Good Functional capacity at discharge: independent ambulation Overall status at discharge: patient is progressing back to baseline - Discharge Instructions Follow Up With: Juan Francisco Cortez MD [Primary Care Provider] - Woo Garcia DO [Partnered Physician] - - Diet and Activity Activity: increase activity as tolerated Diet: regular diet Hospital Course Reason for admission: induction of labor, IUP at term Delivery: section Episiotomy: none Laceration: none Other procedures: none complications: none Discharge diagnosis: IUP at term delivered [place] baby: female Time Attestation: Total time spent providing and/or coordinating discharge services: Time Spent: Less than 30 minutes - VTE Reasons for not Prescribing Prophylaxis: Treatment not Indicated - Low risk for VTE Documentation of Mechanical Device: Intermittent pneumatic compression device Exam - Constitutional Vitals: Temp Pulse Resp BP Pulse Ox 98.3 F 98 16 125/82 97 01/27/18 19:43 01/27/18 19:43 01/27/18 19:43 01/27/18 19:43 01/27/18 19:43 General appearance IM: cooperative, A&O X 3, pleasant - Respiratory Respiratory exam: Present: CTAB - Cardiovascular Cardiovascular exam IM: Present: RRR, +S1, +S2 - GI/Abdominal GI/Abdominal exam IM: normal bowel sounds Incision: normal (RISHABH in place ), dry, intact - Rectal Rectal exam: deferred - Uterine Tone: Firm Uterus Position: At Umbilicus, Midline - Extremities Exam Extremities exam IM: Present: normal capillary refill, normal inspection, radial pulses palpable and symmetrical - Neurological Exam Neurological exam: alert, oriented X3
== END 2018-01-28 11:25 | disposition home or self-care (01) | DRG 765 ==
LOC: 1NENULAB 23:02 → 1NENUOBS 01-26 07:52
PROVIDERS: ADMIT Advanced Practice Midwife; ATTEND Obstetrics & Gynecology

== ENCOUNTER 2018-01-31 23:26 | Inpatient (IN) ==
--- NOTE | 2018-02-01 00:20 | Emergency Department Note ---
Disposition Clinical Impression: Abdominal wall cellulitis, History of , Abdominal wall abscess at site of surgical wound Abdominal pain Qualifiers: Abdominal location: unspecified location Qualified Code(s): R10.9 - Unspecified abdominal pain Disposition: Admitted As Inpatient Condition: Fair Time of Disposition: 00:54 Fever HPI - General Chief Complaint: ED Fever Stated Complaint: had on Sat. Incision bleeding, fever Time Seen by Provider: 01/31/18 23:57 Source: patient Mode of arrival: ambulatory Limitations: no limitations Nursing Notes Reviewed: Yes Vital Signs Reviewed: Yes - History of Present Illness HPI Narrative: Patient is a 22-year-old female with past medical history of recent approximately [address] Garcia. She is G1, P1. She states that she had a due to prolonged labor. She does have a history of hypertension and did have hypertension throughout her . Denied any other major complications during such as preeclampsia or eclampsia.. She states that over the past 1-2 days, she has had fevers, started out around 99 degrees and then has slowly progressed. This morning, she noticed some redness around her incision site. She also noticed some yellow discharge at the incision site. She states that over the course of the day, the redness has extended up to her belly button, she has associated hardening of the skin, tenderness to touch of the entire lower abdomen and suprapubic region. Denies any vomiting, diarrhea, constipation, dysuria, hematuria, excessive vaginal bleeding, chest pain, shortness breath. She does admit to some mild lower extremity edema. - Related Data Previous Rx's Medication Instructions Recorded Azithromycin [Zithromax] 250 mg PO DAILY #5 tablet 01/28/18 Docusate [Colace] 100 mg PO BID PRN #30 capsule 01/28/18 Ferrous Sulfate 325 mg PO DAILY #90 tablet 01/28/18 Ibuprofen [Motrin] 600 mg PO Q6HR PRN #30 tablet 01/28/18 OxyCODONE/APAP 5/325 [Percocet 1 each PO Q6H PRN 5 Days #20 tablet 01/28/18 5/325 MG] Vit/FA 1 each PO DAILY tablet 01/28/18 Simethicone [Gas-X] 80 mg PO TID PRN tab.chew 01/28/18 Sulfamethoxazole/Trimeth DS 1 each PO BID #20 tablet 02/03/18 [Bactrim DS] Allergies Allergy/AdvReac Type Severity Reaction Status Date / Time Amoxicillin [From Augmentin] Allergy Swelling Verified 07/13/17 05:18 of Lip/Tongue/Throat clavulanic acid Allergy Swelling Verified 07/13/17 05:18 [From Augmentin] of Lip/Tongue/Throat All systems ED: reviewed and negative except as stated. Constitutional: Reports: fever Cardiovascular: Denies: chest pain Respiratory: Denies: cough, dyspnea Gastrointestinal: Reports: abdominal pain. Denies: nausea, vomiting, diarrhea, constipation Genitourinary: Denies: urgency, dysuria, frequency, hematuria, discharge Integumentary: Denies: rash Neurological: Denies: headache, weakness, numbness, paresthesias Fever PMH - Past Medical History Medical history: Reports: other Surgical history: Reports: other Psychiatric history: Reports: no psych history ENVIRONMENTAL ADVISOR history: Reports: no ENVIRONMENTAL ADVISOR history - Social History Smoking Status: Current every day smoker Alcohol use: Reports: none Drug use: Reports: none Physical Exam - General General appearance: alert - Head Head exam: atraumatic, normocephalic, normal inspection - Eye Eye exam: Present: normal appearance, PERRL, EOMI - ENT ENT exam: normal exam, normal oropharynx, mucous membranes moist - Neck Neck exam: Present: normal inspection, full ROM, trachea midline - Chest Chest inspection: Present: normal inspection, symmetric chest wall rise - Respiratory Respiratory exam: Present: normal lung sounds bilaterally - Cardiovascular Cardiovascular exam: Present: regular rate, normal rhythm, normal heart sounds - Abdominal Exam Abdominal exam: Present: soft, tenderness (Mild lower abdominal tenderness), other (Erythema and induration of the lower abdomen near the surgical incision site, fluctuance of the lower abdomen/abdominal wall, cellulitic changes up to the inferior umbilicus. Yellow pus drainage along the surgical incision site.) . Absent: distention, guarding, rebound, rigidity - Extremities Exam Extremities exam: Present: normal inspection, full ROM. Absent: tenderness, pedal edema - Neurological Exam Neurological exam: Present: alert, oriented X3 - Psychiatric Psychiatric exam: Present: normal affect, normal mood - Skin Skin exam: Present: warm, dry, intact, normal color Course Course Narrative: Patient is tachycardic and hypertensive. Physical exam shows: Erythema and induration of the lower abdomen near the surgical incision site, fluctuance of the lower abdomen/abdominal wall, cellulitic changes up to the inferior umbilicus. Yellow pus drainage along the surgical incision site. Currently concern for cellulitis versus abscess versus intra-abdominal infection. We will obtain CT abdomen and pelvis with IV contrast for further assessment, basic labs, lactic acid, blood cultures. We will go ahead and start the patient on vancomycin, meropenem, Flagyl empirically to cover staph, gram- negative, anaerobic back.. She does have an allergy to penicillin, therefore Zosyn was not ordered. Also ordered urinalysis and urine protein creatinine ratio to assess for any signs of protein spillage to indicate the [place] a. Patient does have a history of hypertension but states that this blood pressure is higher than usual. She has no current neurologic symptoms, has no vision changes. She does have a mild headache. Will sign out to Dr. Val Francisco and Dr. Denton for further care and dispo. Vital Signs Temperature 98.5 F 01/31/18 23:31 Pulse Rate 128 01/31/18 23:31 Respiratory Rate 20 01/31/18 23:31 Blood Pressure 172/114 01/31/18 23:31 O2 Sat by Pulse Oximetry 98 01/31/18 23:31 Temperature 98.1 F 02/03/18 08:00 Pulse Rate 89 02/03/18 08:00 Respiratory Rate 16 02/03/18 08:00 Blood Pressure 140/68 02/03/18 08:00 O2 Sat by Pulse Oximetry 98 02/03/18 04:00 Oxygen Delivery Oxygen Delivery Room Air Fever - MDM Narrative Medical decision making narrative: Patient is tachycardic and hypertensive. Physical exam shows: Erythema and induration of the lower abdomen near the surgical incision site, fluctuance of the lower abdomen/abdominal wall, cellulitic changes up to the inferior umbilicus. Yellow pus drainage along the surgical incision site. Currently concern for cellulitis versus abscess versus intra-abdominal infection. We will obtain CT abdomen and pelvis with IV contrast for further assessment, basic labs, lactic acid, blood cultures. We will go ahead and start the patient on vancomycin, meropenem, Flagyl empirically to cover staph, gram- negative, anaerobic back.. She does have an allergy to penicillin, therefore Zosyn was not ordered. Also ordered urinalysis and urine protein creatinine ratio to assess for any signs of protein spillage to indicate the [place] a. Patient does have a history of hypertension but states that this blood pressure is higher than usual. She has no current neurologic symptoms, has no vision changes. She does have a mild headache. Will sign out to Dr. Val Francisco and Dr. Denton for further care and dispo. - Medical Records Medical records reviewed: Yes I reviewed the patient's medical records. - Lab Data Result diagrams: 02/03/18 07:09 02/01/18 00:05 Lab Results 02/01/18 02/01/18 02/01/18 Range/Units 00:05 00:05 00:05 WBC 12.1 H (4.3-11.1) K/mcL RBC 4.00 (3.82-4.97) M/mcL Hgb 11.4 L (11.5-15.4) g/dL Hct 33.9 L (35.3-44.9) % MCV 84.8 (83.0-100.0) fL MCH 28.5 (28.0-33.3) pg MCHC 33.6 (31.6-35.5) g/dL RDW 13.5 (11.5-14.5) % Plt Count 230 (140-400) K/mcL MPV 11.8 (9.4-12.4) fL Immature Gran % 0.4 (0-4) % Seg Neutrophils % 80.1 % Lymphocytes % 11.0 % Monocytes % 7.5 % Eosinophils % 0.8 % Basophils % 0.2 % Neutrophils # 9.7 H (1.6-8.9) K/mcL Lymphocytes # 1.3 (0.6-4.6) K/mcL Monocytes # 0.9 (0.0-1.3) K/mcL Eosinophils # 0.1 (0.0-0.6) K/mcL Basophils # 0.0 (0.0-0.2) K/mcL Sodium 137 (136-145) mEq/L Potassium 3.4 L (3.5-5.1) mEq/L Chloride 103 (98-107) mEq/L Carbon Dioxide 22 L (23-29) mEq/L BUN 15 (6-20) mg/dL Creatinine 1.05 (0.60-1.20) mg/dL Est GFR ( Amer) > 60 (> 60) Est GFR (Non-Af Amer) > 60 (> 60) BUN/Creatinine Ratio 14 (6-26) Glucose 98 (70-105) mg/dL Calculated Osmolality 285 (280-300) Lactic Acid (0.5-2.2) mmol/L Calcium 9.0 (8.6-10.3) mg/dL Total Bilirubin (0.3-1.0) mg/dL Direct Bilirubin (0.0-0.2) mg/dL Indirect Bilirubin (0.0-1.2) mg/dL AST (13-39) Units/L ALT (7-52) Units/L Alkaline Phosphatase (34-104) Units/L Lactate Dehydrogenase (140-271) Units/L Serum Total Protein (6.4-8.9) g/dL Albumin (3.5-5.7) g/dL Globulin (2.4-3.5) g/dL Albumin/Globulin Ratio (1.1-2.2) Urine Color Yellow (Yellow) Urine Clarity Cloudy A (Clear) Urine pH 6.0 (5.0-8.0) pH Units Ur Specific [place] 1.020 (1.010-1.025) Urine Protein 100 H (Neg-Trace) mg/dL Urine Glucose (UA) Normal (Normal) mg/dL Urine Ketones Negative (Negative) mg/dL Urine Blood Large H (Negative) Urine Nitrite Negative (Negative) Urine Bilirubin Negative (Negative) Urine Urobilinogen Normal (Normal) mg/dL Ur Leukocyte Esterase Large H (Negative) Urine Microscopic RBC TNTC H (0-3) per hpf Urine Microscopic WBC TNTC H (0-3) per hpf Ur Squamous Epith Cells Many H (None-Few) per lpf Urine Bacteria None Seen (None-Few) per hpf Hyaline Casts Few (None-Few) per lpf Ur Culture Indicated? NO. A (NO) Urine Creatinine mg/dL Protein/Creatinin Ratio (0.00-0.20) mg/mg Ur Uric Acid mg/dL Urine Total Protein (1-14) mg/dL 02/01/18 02/01/18 02/01/18 Range/Units 00:05 00:05 00:15 WBC (4.3-11.1) K/mcL RBC (3.82-4.97) M/mcL Hgb (11.5-15.4) g/dL Hct (35.3-44.9) % MCV (83.0-100.0) fL MCH (28.0-33.3) pg MCHC (31.6-35.5) g/dL RDW (11.5-14.5) % Plt Count (140-400) K/mcL MPV (9.4-12.4) fL Immature Gran % (0-4) % Seg Neutrophils % % Lymphocytes % % Monocytes % % Eosinophils % % Basophils % % Neutrophils # (1.6-8.9) K/mcL Lymphocytes # (0.6-4.6) K/mcL Monocytes # (0.0-1.3) K/mcL Eosinophils # (0.0-0.6) K/mcL Basophils # (0.0-0.2) K/mcL Sodium (136-145) mEq/L Potassium (3.5-5.1) mEq/L Chloride (98-107) mEq/L Carbon Dioxide (23-29) mEq/L BUN (6-20) mg/dL Creatinine (0.60-1.20) mg/dL Est GFR ( Amer) (> 60) Est GFR (Non-Af Amer) (> 60) BUN/Creatinine Ratio (6-26) Glucose (70-105) mg/dL Calculated Osmolality (280-300) Lactic Acid 0.5 (0.5-2.2) mmol/L Calcium (8.6-10.3) mg/dL Total Bilirubin 0.3 (0.3-1.0) mg/dL Direct Bilirubin 0.0 (0.0-0.2) mg/dL Indirect Bilirubin 0.3 (0.0-1.2) mg/dL AST 11 L (13-39) Units/L ALT 12 (7-52) Units/L Alkaline Phosphatase 122 H (34-104) Units/L Lactate Dehydrogenase 153 (140-271) Units/L Serum Total Protein 6.8 (6.4-8.9) g/dL Albumin 3.3 L (3.5-5.7) g/dL Globulin 3.5 (2.4-3.5) g/dL Albumin/Globulin Ratio 0.9 L (1.1-2.2) Urine Color (Yellow) Urine Clarity (Clear) Urine pH (5.0-8.0) pH Units Ur Specific [place] (1.010-1.025) Urine Protein (Neg-Trace) mg/dL Urine Glucose (UA) (Normal) mg/dL Urine Ketones (Negative) mg/dL Urine Blood (Negative) Urine Nitrite (Negative) Urine Bilirubin (Negative) Urine Urobilinogen (Normal) mg/dL Ur Leukocyte Esterase (Negative) Urine Microscopic RBC (0-3) per hpf Urine Microscopic WBC (0-3) per hpf Ur Squamous Epith Cells (None-Few) per lpf Urine Bacteria (None-Few) per hpf Hyaline Casts (None-Few) per lpf Ur Culture Indicated? (NO) Urine Creatinine 132 mg/dL Protein/Creatinin Ratio 0.53 H (0.00-0.20) mg/mg Ur Uric Acid mg/dL Urine Total Protein 70 H (1-14) mg/dL 02/01/18 Range/Units 01:11 WBC (4.3-11.1) K/mcL RBC (3.82-4.97) M/mcL Hgb (11.5-15.4) g/dL Hct (35.3-44.9) % MCV (83.0-100.0) fL MCH (28.0-33.3) pg MCHC (31.6-35.5) g/dL RDW (11.5-14.5) % Plt Count (140-400) K/mcL MPV (9.4-12.4) fL Immature Gran % (0-4) % Seg Neutrophils % % Lymphocytes % % Monocytes % % Eosinophils % % Basophils % % Neutrophils # (1.6-8.9) K/mcL Lymphocytes # (0.6-4.6) K/mcL Monocytes # (0.0-1.3) K/mcL Eosinophils # (0.0-0.6) K/mcL Basophils # (0.0-0.2) K/mcL Sodium (136-145) mEq/L Potassium (3.5-5.1) mEq/L Chloride (98-107) mEq/L Carbon Dioxide (23-29) mEq/L BUN (6-20) mg/dL Creatinine (0.60-1.20) mg/dL Est GFR ( Amer) (> 60) Est GFR (Non-Af Amer) (> 60) BUN/Creatinine Ratio (6-26) Glucose (70-105) mg/dL Calculated Osmolality (280-300) Lactic Acid (0.5-2.2) mmol/L Calcium (8.6-10.3) mg/dL Total Bilirubin (0.3-1.0) mg/dL Direct Bilirubin (0.0-0.2) mg/dL Indirect Bilirubin (0.0-1.2) mg/dL AST (13-39) Units/L ALT (7-52) Units/L Alkaline Phosphatase (34-104) Units/L Lactate Dehydrogenase (140-271) Units/L Serum Total Protein (6.4-8.9) g/dL Albumin (3.5-5.7) g/dL Globulin (2.4-3.5) g/dL Albumin/Globulin Ratio (1.1-2.2) Urine Color (Yellow) Urine Clarity (Clear) Urine pH (5.0-8.0) pH Units Ur Specific [place] (1.010-1.025) Urine Protein (Neg-Trace) mg/dL Urine Glucose (UA) (Normal) mg/dL Urine Ketones (Negative) mg/dL Urine Blood (Negative) Urine Nitrite (Negative) Urine Bilirubin (Negative) Urine Urobilinogen (Normal) mg/dL Ur Leukocyte Esterase (Negative) Urine Microscopic RBC (0-3) per hpf Urine Microscopic WBC (0-3) per hpf Ur Squamous Epith Cells (None-Few) per lpf Urine Bacteria (None-Few) per hpf Hyaline Casts (None-Few) per lpf Ur Culture Indicated? (NO) Urine Creatinine mg/dL Protein/Creatinin Ratio (0.00-0.20) mg/mg Ur Uric Acid 51 mg/dL Urine Total Protein (1-14) mg/dL S.B.A.R. - S.B.A.R. Situation: Demographics, MOA Background: Presenting Complaint, Relevant PMH, Meds, & Allergies Assessment: Vital Signs, Course and respsone to treatment, Exam Concerns, Patient/Family Expectation, Pertinant Lab Results, Outstanding Labs Recommendation: Barrier(s) to disposition, Recommendation based on pending studies, treatments, or consults S.B.A.R. Report Given to: Dr. Val francisco, Dr. Denton Attestation Statement - Attestation Attestation: I examined this patient and my medical decision-making was reviewed with the Resident Physician, Dr. Abdalla. I agree with the documented findings, disposition and treatment plan as described except to the extent set forth below. Pt is a 22 yo wf here with c/o lower abd pain s/p C/section, with reported F/C, with increased pain, redness and swelling around C/S incision. I agree with pt's PE findings as documented. Pt is tachy, and elev BP on arrival. Pt placed on CM, pulse ox and IV established, IVF initiated and labs/cxs drawn and sent. Pt with exam findings concerning for abd wall cellulitis with possible abscess and elevated BP. Initial assessment and labs ordered, and pt signed out to Dr. Denton and shift coordinator team for re-eval, followup on testing and final disposition.
[2018-02-01] MEDS ORDERED: Isovue-370 500 ML INFUS..BTL IV ONE (00:22)
[2018-02-01] MEDS ORDERED: MetroNIDAZOLE 500 MG/100 ML 500 MG/100 ML BAG IVPB ONE (00:22)
[2018-02-01] MEDS ORDERED: Meropenem 1,000 MG in Water for inj. (sterile) 20 ML 10 ML IVP ONE (00:23)
[2018-02-01 00:34] LABS: Bilirubin,Urine Negative (Negative); Blood,Urine Large (Negative); Clarity,Urine Cloudy (Clear); Color,Urine Yellow (Yellow); Glucose,Urine (UA) Normal (Normal); Ketones,Urine Negative (Negative); Leukocyte Esterase,Urine Large (Negative); Nitrite,Urine Negative (Negative); Protein,Urine 100 mg/dL (Neg-Trace); Urobilinogen,Urine Normal (Normal)
[2018-02-01 00:36] LABS: Bacteria,Urine None Seen per hpf (None-Few); Basophils % 0.2 %; Eosinophils # 0.1 K/mcL (0.0-0.6); Eosinophils % 0.8 %; Hematocrit 33.9 % (35.3-44.9); Hemoglobin 11.4 g/dL (11.5-15.4); Hyaline Casts,Urine Few per lpf (None-Few); Immature Granulocytes % 0.4 % (0-4); Lymphocytes # 1.3 K/mcL (0.6-4.6); Mean Corpuscular HGB Conc 33.6 g/dL (31.6-35.5); Mean Corpuscular Hemoglobin 28.5 pg (28.0-33.3); Mean Corpuscular Volume 84.8 fL (83.0-100.0); Mean Platelet Volume 11.8 fL (9.4-12.4); Monocytes # 0.9 K/mcL (0.0-1.3); Monocytes % 7.5 %; Neutrophils # 9.7 K/mcL (1.6-8.9); Platelet Count 230 K/mcL (140-400); RBC,Urine TNTC per hpf (0-3); Red Cell Distribution Width 13.5 % (11.5-14.5); Segmented Neutrophils % 80.1 %; Squamous Epithelial Cell,Urine Many per lpf (None-Few); WBC,Urine TNTC per hpf (0-3)
[2018-02-01 00:43] LABS: Protein/Creatinine Ratio,Urine 0.53 mg/mg (0.00-0.20)
[2018-02-01 00:55] LABS: Albumin 3.3 g/dL (3.5-5.7); Albumin/Globulin Ratio 0.9 (1.1-2.2); BUN/Creatinine Ratio 14 (6-26); Bilirubin,Indirect 0.3 mg/dL (0.0-1.2); Bilirubin,Total 0.3 mg/dL (0.3-1.0); Blood Urea Nitrogen 15 mg/dL (6-20); Carbon Dioxide 22 mEq/L (23-29); Chloride 103 mEq/L (98-107); Globulin 3.5 g/dL (2.4-3.5); Glucose 98 mg/dL (70-105); Osmolality,Calculated 285 (280-300); Potassium 3.4 mEq/L (3.5-5.1); Sodium 137 mEq/L (136-145); Total Protein 6.8 g/dL (6.4-8.9); eGFR For Non-African Americans > 60 (> 60)
--- NOTE | 2018-02-01 01:07 | Emergency Department Note ---
Disposition Clinical Impression: Abdominal wall cellulitis, History of , Abdominal wall abscess at site of surgical wound Abdominal pain Qualifiers: Abdominal location: unspecified location Qualified Code(s): R10.9 - Unspecified abdominal pain Disposition: Admitted As Inpatient Condition: Fair Time of Disposition: 01:55 General Adult HPI - General Chief complaint: ED Fever Stated complaint: had on Sat. Incision bleeding, fever Time Seen by Provider: 01/31/18 23:57 Source: patient Mode of arrival: ambulatory Limitations: no limitations - History of Present Illness Pain Scale: 0 - Related Data Previous Rx's Medication Instructions Recorded Azithromycin [Zithromax] 250 mg PO DAILY #5 tablet 01/28/18 Docusate [Colace] 100 mg PO BID PRN #30 capsule 01/28/18 Ferrous Sulfate 325 mg PO DAILY #90 tablet 01/28/18 Ibuprofen [Motrin] 600 mg PO Q6HR PRN #30 tablet 01/28/18 OxyCODONE/APAP 5/325 [Percocet 1 each PO Q6H PRN 5 Days #20 tablet 01/28/18 5/325 MG] Vit/FA 1 each PO DAILY tablet 01/28/18 Simethicone [Gas-X] 80 mg PO TID PRN tab.chew 01/28/18 Allergies Allergy/AdvReac Type Severity Reaction Status Date / Time Amoxicillin [From Augmentin] Allergy Swelling Verified 07/13/17 05:18 of Lip/Tongue/Throat clavulanic acid Allergy Swelling Verified 07/13/17 05:18 [From Augmentin] of Lip/Tongue/Throat Constitutional: Reports: fever Cardiovascular: Denies: chest pain Respiratory: Denies: cough, dyspnea Gastrointestinal: Reports: abdominal pain. Denies: nausea, vomiting, diarrhea, constipation Genitourinary: Denies: urgency, dysuria, frequency, hematuria, discharge Integumentary: Denies: rash Neurological: Denies: headache, weakness, numbness, paresthesias Past Medical History - Past Medical History Medical history: Reports: other Surgical history: Reports: other Psychiatric history: Reports: no psych history BENEFIT DIRECTOR history: Reports: no BENEFIT DIRECTOR history - Social History Smoking Status: Current every day smoker Smokeless Tobacco Status: No Alcohol use: Reports: none Drug use: Reports: none Physical Exam - General Limitations: no limitations General appearance: alert Course Course Narrative: 22-year-old female signed out to us by the day team. Concern for abscess and cellulitis of site. Please refer to their note for further history of present illness. Patient labs and CT of the abdomen and pelvis pending to determine disposition. - Reevaluation(s) Reevaluation #1: Patient's CT of the abdomen and pelvis shows cellulitis around the incision site along with a focal collection that is 9 cm x 3 cm. Also shows concerns for endometritis. Patient is on vancomycin, meropenem and Flagyl per day team. I spoke with the licensed therapist on-call Lynsey Le who agrees to accept the patient admitted to the BENEFIT DIRECTOR service. Patient is alert and oriented 3 in the room with stable vital signs. Patient agrees with this plan. Vital Signs Temperature 98.5 F 01/31/18 23:31 Pulse Rate 128 01/31/18 23:31 Respiratory Rate 20 01/31/18 23:31 Blood Pressure 172/114 01/31/18 23:31 O2 Sat by Pulse Oximetry 98 01/31/18 23:31 Temperature 98.5 F 01/31/18 23:31 Pulse Rate 103 02/01/18 01:44 Respiratory Rate 16 02/01/18 01:44 Blood Pressure 176/106 02/01/18 01:44 O2 Sat by Pulse Oximetry 99 02/01/18 01:44 Oxygen Delivery Oxygen Delivery Room Air Medical Decision Making - Lab Data Result diagrams: 02/01/18 00:05 02/01/18 00:05 Lab Results 02/01/18 02/01/18 02/01/18 Range/Units 00:05 00:05 00:05 WBC 12.1 H (4.3-11.1) K/mcL RBC 4.00 (3.82-4.97) M/mcL Hgb 11.4 L (11.5-15.4) g/dL Hct 33.9 L (35.3-44.9) % MCV 84.8 (83.0-100.0) fL MCH 28.5 (28.0-33.3) pg MCHC 33.6 (31.6-35.5) g/dL RDW 13.5 (11.5-14.5) % Plt Count 230 (140-400) K/mcL MPV 11.8 (9.4-12.4) fL Immature Gran % 0.4 (0-4) % Seg Neutrophils % 80.1 % Lymphocytes % 11.0 % Monocytes % 7.5 % Eosinophils % 0.8 % Basophils % 0.2 % Neutrophils # 9.7 H (1.6-8.9) K/mcL Lymphocytes # 1.3 (0.6-4.6) K/mcL Monocytes # 0.9 (0.0-1.3) K/mcL Eosinophils # 0.1 (0.0-0.6) K/mcL Basophils # 0.0 (0.0-0.2) K/mcL Sodium 137 (136-145) mEq/L Potassium 3.4 L (3.5-5.1) mEq/L Chloride 103 (98-107) mEq/L Carbon Dioxide 22 L (23-29) mEq/L BUN 15 (6-20) mg/dL Creatinine 1.05 (0.60-1.20) mg/dL Est GFR ( Amer) > 60 (> 60) Est GFR (Non-Af Amer) > 60 (> 60) BUN/Creatinine Ratio 14 (6-26) Glucose 98 (70-105) mg/dL Calculated Osmolality 285 (280-300) Lactic Acid (0.5-2.2) mmol/L Calcium 9.0 (8.6-10.3) mg/dL Total Bilirubin (0.3-1.0) mg/dL Direct Bilirubin (0.0-0.2) mg/dL Indirect Bilirubin (0.0-1.2) mg/dL AST (13-39) Units/L ALT (7-52) Units/L Alkaline Phosphatase (34-104) Units/L Lactate Dehydrogenase (140-271) Units/L Serum Total Protein (6.4-8.9) g/dL Albumin (3.5-5.7) g/dL Globulin (2.4-3.5) g/dL Albumin/Globulin Ratio (1.1-2.2) Urine Color Yellow (Yellow) Urine Clarity Cloudy A (Clear) Urine pH 6.0 (5.0-8.0) pH Units Ur Specific [place] 1.020 (1.010-1.025) Urine Protein 100 H (Neg-Trace) mg/dL Urine Glucose (UA) Normal (Normal) mg/dL Urine Ketones Negative (Negative) mg/dL Urine Blood Large H (Negative) Urine Nitrite Negative (Negative) Urine Bilirubin Negative (Negative) Urine Urobilinogen Normal (Normal) mg/dL Ur Leukocyte Esterase Large H (Negative) Urine Microscopic RBC TNTC H (0-3) per hpf Urine Microscopic WBC TNTC H (0-3) per hpf Ur Squamous Epith Cells Many H (None-Few) per lpf Urine Bacteria None Seen (None-Few) per hpf Hyaline Casts Few (None-Few) per lpf Ur Culture Indicated? NO. A (NO) Urine Creatinine mg/dL Protein/Creatinin Ratio (0.00-0.20) mg/mg Ur Uric Acid mg/dL Urine Total Protein (1-14) mg/dL 02/01/18 02/01/18 02/01/18 Range/Units 00:05 00:05 00:15 WBC (4.3-11.1) K/mcL RBC (3.82-4.97) M/mcL Hgb (11.5-15.4) g/dL Hct (35.3-44.9) % MCV (83.0-100.0) fL MCH (28.0-33.3) pg MCHC (31.6-35.5) g/dL RDW (11.5-14.5) % Plt Count (140-400) K/mcL MPV (9.4-12.4) fL Immature Gran % (0-4) % Seg Neutrophils % % Lymphocytes % % Monocytes % % Eosinophils % % Basophils % % Neutrophils # (1.6-8.9) K/mcL Lymphocytes # (0.6-4.6) K/mcL Monocytes # (0.0-1.3) K/mcL Eosinophils # (0.0-0.6) K/mcL Basophils # (0.0-0.2) K/mcL Sodium (136-145) mEq/L Potassium (3.5-5.1) mEq/L Chloride (98-107) mEq/L Carbon Dioxide (23-29) mEq/L BUN (6-20) mg/dL Creatinine (0.60-1.20) mg/dL Est GFR ( Amer) (> 60) Est GFR (Non-Af Amer) (> 60) BUN/Creatinine Ratio (6-26) Glucose (70-105) mg/dL Calculated Osmolality (280-300) Lactic Acid 0.5 (0.5-2.2) mmol/L Calcium (8.6-10.3) mg/dL Total Bilirubin 0.3 (0.3-1.0) mg/dL Direct Bilirubin 0.0 (0.0-0.2) mg/dL Indirect Bilirubin 0.3 (0.0-1.2) mg/dL AST 11 L (13-39) Units/L ALT 12 (7-52) Units/L Alkaline Phosphatase 122 H (34-104) Units/L Lactate Dehydrogenase 153 (140-271) Units/L Serum Total Protein 6.8 (6.4-8.9) g/dL Albumin 3.3 L (3.5-5.7) g/dL Globulin 3.5 (2.4-3.5) g/dL Albumin/Globulin Ratio 0.9 L (1.1-2.2) Urine Color (Yellow) Urine Clarity (Clear) Urine pH (5.0-8.0) pH Units Ur Specific [place] (1.010-1.025) Urine Protein (Neg-Trace) mg/dL Urine Glucose (UA) (Normal) mg/dL Urine Ketones (Negative) mg/dL Urine Blood (Negative) Urine Nitrite (Negative) Urine Bilirubin (Negative) Urine Urobilinogen (Normal) mg/dL Ur Leukocyte Esterase (Negative) Urine Microscopic RBC (0-3) per hpf Urine Microscopic WBC (0-3) per hpf Ur Squamous Epith Cells (None-Few) per lpf Urine Bacteria (None-Few) per hpf Hyaline Casts (None-Few) per lpf Ur Culture Indicated? (NO) Urine Creatinine 132 mg/dL Protein/Creatinin Ratio 0.53 H (0.00-0.20) mg/mg Ur Uric Acid mg/dL Urine Total Protein 70 H (1-14) mg/dL 02/01/18 Range/Units 01:11 WBC (4.3-11.1) K/mcL RBC (3.82-4.97) M/mcL Hgb (11.5-15.4) g/dL Hct (35.3-44.9) % MCV (83.0-100.0) fL MCH (28.0-33.3) pg MCHC (31.6-35.5) g/dL RDW (11.5-14.5) % Plt Count (140-400) K/mcL MPV (9.4-12.4) fL Immature Gran % (0-4) % Seg Neutrophils % % Lymphocytes % % Monocytes % % Eosinophils % % Basophils % % Neutrophils # (1.6-8.9) K/mcL Lymphocytes # (0.6-4.6) K/mcL Monocytes # (0.0-1.3) K/mcL Eosinophils # (0.0-0.6) K/mcL Basophils # (0.0-0.2) K/mcL Sodium (136-145) mEq/L Potassium (3.5-5.1) mEq/L Chloride (98-107) mEq/L Carbon Dioxide (23-29) mEq/L BUN (6-20) mg/dL Creatinine (0.60-1.20) mg/dL Est GFR ( Amer) (> 60) Est GFR (Non-Af Amer) (> 60) BUN/Creatinine Ratio (6-26) Glucose (70-105) mg/dL Calculated Osmolality (280-300) Lactic Acid (0.5-2.2) mmol/L Calcium (8.6-10.3) mg/dL Total Bilirubin (0.3-1.0) mg/dL Direct Bilirubin (0.0-0.2) mg/dL Indirect Bilirubin (0.0-1.2) mg/dL AST (13-39) Units/L ALT (7-52) Units/L Alkaline Phosphatase (34-104) Units/L Lactate Dehydrogenase (140-271) Units/L Serum Total Protein (6.4-8.9) g/dL Albumin (3.5-5.7) g/dL Globulin (2.4-3.5) g/dL Albumin/Globulin Ratio (1.1-2.2) Urine Color (Yellow) Urine Clarity (Clear) Urine pH (5.0-8.0) pH Units Ur Specific [place] (1.010-1.025) Urine Protein (Neg-Trace) mg/dL Urine Glucose (UA) (Normal) mg/dL Urine Ketones (Negative) mg/dL Urine Blood (Negative) Urine Nitrite (Negative) Urine Bilirubin (Negative) Urine Urobilinogen (Normal) mg/dL Ur Leukocyte Esterase (Negative) Urine Microscopic RBC (0-3) per hpf Urine Microscopic WBC (0-3) per hpf Ur Squamous Epith Cells (None-Few) per lpf Urine Bacteria (None-Few) per hpf Hyaline Casts (None-Few) per lpf Ur Culture Indicated? (NO) Urine Creatinine mg/dL Protein/Creatinin Ratio (0.00-0.20) mg/mg Ur Uric Acid 51 mg/dL Urine Total Protein (1-14) mg/dL Attestation Statement - Attestation Attestation: I, Blake Denton MD, personally evaluated this patient and discussed their management with the resident physician. I reviewed the resident's note and agree with the documented findings, medical decision making, and plan of care. This patient was signed out at shift change from Dr. Abdalla and Dr. Teri Roman. Please refer to their notes for complete details of history and physical examination. At shift change patient is just awaiting results of a CT scan of the abdomen and pelvis. CT returned and did show some abdominal wall cellulitis as well as an anterior abdominal wall abscess. Some foci of air in the anterior abdominal wall subcutaneous tissue which could just be postoperative. There is also some foci of air within the endometrial stripe suggesting possible endometritis. Results and plan discussed with patient. BENEFIT DIRECTOR was consulted and accepted admission of the patient.
[2018-02-01] MEDS ORDERED: *HR* Labetalol 20 MG/4 ML SYRINGE IVP ONE (03:08)
[2018-02-01] MEDS ORDERED: Ibuprofen 600 MG TABLET PO PRN (04:20)
[2018-02-01] MEDS ORDERED: Acetaminophen 325 MG TABLET PO PRN (04:20)
--- NOTE | 2018-02-01 04:51 | OB/GYN History & Physical ---
Date of Encounter: 02/01/18 Time of Encounter: 03:00 Assessment and Plan (1) Major infection Current visit: Yes Status: Acute Admit to unit Administer antibiotics as ordered Consult with Dr. Garcia or Dr. Ho in the morning Pain medication when necessary Anticipate likely discharge home within 48 hours (2) Abdominal wall abscess at site of surgical wound Current visit: Yes Status: Acute (3) Abdominal wall cellulitis Current visit: Yes Status: Acute History of Present Illness Chief complaint: lof from c/s scar HPI: Ms. Petersen is a 22 year old female who is day 6 from a primary low transverse . She reports that this afternoon she began to feel some slight pain in her abdomen around her scar noted that there was quite a bit of drainage through the bandage. She had her stepmother come over and change the bandage. The stepmother stated that part of the scar looks like it was "trying to open". She reports she put Steri- Strips on it and then redressed it with another delores. The patient reports that the pain became much worse. Upon arrival to the ER a large red in her abdomen above the scar appeared. The patient denies pain. She reports no fever. She does complain of chills. Past Med Surg Social Fam HX - Past Medical History Medical history: other Additional medical history: Anxiety. Depression. Psychiatric history: no psych history - Past Surgical History Surgical History: other Additional surgical history: T&A - Social History Smoking Status: Current every day smoker Smokeless Tobacco Status: No Alcohol use: none Drug use: none - Family History Mother Adopted: Yes Family Member Ethnicity: Non- Living Status: Still Living Hx Family Cardiac Disorders: No Hx Family Respiratory Disorders: No Hx Family Cancer: No Hx Family GI Disorders: No Hx Family Endocrine Disorder: No Hx Family Neuromuscular Disorders: No Hx Family Neurologic Disorders: No Hx Family HEENT Disorders: No Hx Family Autoimmune Disorders: No Obstetrical History - Pregnancies : 1 Para: 1 Term: 1 : 0 Ab's: 0 Livin Medications and Allergies Azithromycin [Zithromax] 250 mg PO DAILY #5 tablet 01/28/18 [Rx] Docusate [Colace] 100 mg PO BID PRN #30 capsule 01/28/18 [Rx] Ferrous Sulfate 325 mg PO DAILY #90 tablet 01/28/18 [Rx] Ibuprofen [Motrin] 600 mg PO Q6HR PRN #30 tablet 01/28/18 [Rx] OxyCODONE/APAP 5/325 [Percocet 5/325 MG] 1 each PO Q6H PRN 5 Days #20 tablet [Rx] Vit/FA 1 each PO DAILY tablet 01/28/18 [Rx] Simethicone [Gas-X] 80 mg PO TID PRN tab.chew 01/28/18 [Rx] 3 Allergy/AdvReac Type Severity Reaction Status Date / Time Amoxicillin [From Augmentin] Allergy Swelling Verified 07/13/17 05:18 of Lip/Tongue/Throat clavulanic acid Allergy Swelling Verified 07/13/17 05:18 [From Augmentin] of Lip/Tongue/Throat Review of System OB All systems PM: reviewed and no additional remarkable complaints except as stated Exam - Vital Signs Vital signs: Initial Vital Signs Temp Pulse Resp BP Pulse Ox 98.5 F 128 20 172/114 98 01/31/18 23:31 01/31/18 23:31 01/31/18 23:31 01/31/18 23:31 01/31/18 23:31 - Constitutional Constitutional: well developed, well nourished, moderate distress, morbidly obese - HEENT HEENT: PERRL, Normocephaly, Mucus Membranes Moist - Neck Neck exam: full ROM - Lungs Respiratory exam: CTAB, tachypnea - Cardiovascular Cardiovascular exam: RRR, +S1, +S2 - Abdomen Abdomen: Present: diffuse tenderness, mass - Extremities Extremities exam: normal inspection, radial pulses palpable and symmetrical - Uterus Uterus exam: Present: tender Results Result Diagrams: 02/01/18 00:05 02/01/18 00:05 Abnormal lab results WBC 12.1 K/mcL (4.3-11.1) H 02/01/18 00:05 Hgb 11.4 g/dL (11.5-15.4) L 02/01/18 00:05 Hct 33.9 % (35.3-44.9) L 02/01/18 00:05 Neutrophils # 9.7 K/mcL (1.6-8.9) H 02/01/18 00:05 Potassium 3.4 mEq/L (3.5-5.1) L 02/01/18 00:05 Carbon Dioxide 22 mEq/L (23-29) L 02/01/18 00:05 AST 11 Units/L (13-39) L 02/01/18 00:05 Alkaline Phosphatase 122 Units/L (34-104) H 02/01/18 00:05 Albumin 3.3 g/dL (3.5-5.7) L 02/01/18 00:05 Albumin/Globulin Ratio 0.9 (1.1-2.2) L 02/01/18 00:05 Urine Clarity Cloudy (Clear) A 02/01/18 00:05 Urine Protein 100 mg/dL (Neg-Trace) H 02/01/18 00:05 Urine Blood Large (Negative) H 02/01/18 00:05 Ur Leukocyte Esterase Large (Negative) H 02/01/18 00:05 Urine Microscopic RBC TNTC per hpf (0-3) H 02/01/18 00:05 Urine Microscopic WBC TNTC per hpf (0-3) H 02/01/18 00:05 Ur Squamous Epith Cells Many per lpf (None-Few) H 02/01/18 00:05 Ur Culture Indicated? NO. (NO) A 02/01/18 00:05 Protein/Creatinin Ratio 0.53 mg/mg (0.00-0.20) H 02/01/18 00:05 Urine Total Protein 70 mg/dL (1-14) H 02/01/18 00:05 All other labs normal. - VTE Reasons for not Prescribing Prophylaxis: Treatment not Indicated - Low risk for VTE
[2018-02-01 06:11] LABS: Basophils % 0.2 %; Eosinophils # 0.1 K/mcL (0.0-0.6); Eosinophils % 0.6 %; Immature Granulocytes % 0.3 % (0-4); Lymphocytes # 0.9 K/mcL (0.6-4.6); Lymphocytes % 7.7 %; Mean Corpuscular HGB Conc 33.4 g/dL (31.6-35.5); Mean Corpuscular Hemoglobin 28.3 pg (28.0-33.3); Mean Corpuscular Volume 84.5 fL (83.0-100.0); Mean Platelet Volume 11.4 fL (9.4-12.4); Monocytes # 0.9 K/mcL (0.0-1.3); Monocytes % 8.3 %; Neutrophils # 9.3 K/mcL (1.6-8.9); Platelet Count 195 K/mcL (140-400); Red Blood Count 3.43 M/mcL (3.82-4.97); Red Cell Distribution Width 13.5 % (11.5-14.5); Segmented Neutrophils % 82.9 %
[2018-02-01 06:13] LABS: Hemoglobin 9.7 g/dL (11.5-15.4)
[2018-02-01] MEDS ORDERED: 0.9 % Sodium Chloride 1,000 ML ONE (09:04)
[2018-02-01] MEDS: Clindamycin 900 MG/50 ML 900 MG/50 ML IV.SOLN IVPB SCH ×3 (09:16→23:51)
--- NOTE | 2018-02-01 10:32 | OB/GYN Progress Note ---
Date of Encounter: 02/01/18 Time of Encounter: 10:29 - Assessment and Plan (1) Major infection Current Visit: Yes Status: Acute Currently on day 1 of clindamycin, gentamicin, and vancomycin. Received a dose of meropenem and Flagyl in the emergency department. From patient, subjectively less purulent drainage than before, patient feeling much better after administration of antimicrobials. Leukocytosis has decreased from 12.1-11.3. Hemoglobin is now 9.7. It was 11.4 yesterday. Do not see any significant drainage of blood from the incision site. Plan is to Continue antibiotics. Monitor hemoglobin. Blood cultures have been obtained and we are waiting for cultures to grow. Surgery has been consulted. Await recommendations from surgery. I have reviewed the resident's note and agree with its contents. Anupam Ho MD FACOG (2) Abdominal wall cellulitis Current Visit: Yes Status: Acute See above, appears improved from yesterday. (3) Abdominal wall abscess at site of surgical wound Current Visit: Yes Status: Acute See above, still notice evidence of purulent material coming from wound site most likely abscess. Subjective - Subjective Principal diagnosis: wound cellulitis and abscess Interval history: 22-year-old female presented to the emergency department yesterday for concern for fever, wound drainage and redness from incision site. Patient admitted to the hospital overnight. Was in the emergency department yesterday. Patient reported feeling better than she did. States that she feels as if the wound is less red. No spreading past the marked lines. States that she also believes there is less drainage around the site. Patient is currently on day 1 of clindamycin and vancomycin for antimicrobial coverage. Patient reports: pain well controlled, no nauseated Objective - Vital Signs Latest vital signs: Vital Signs Temp Pulse Resp BP Pulse Ox 02/01/18 07:40 98.7 F 104 20 143/87 97 - Exam Lungs: bilateral: normal Chest: Normal S1, Normal S2 Extremities: Present: edema (+1 bilaterally). Absent: tenderness Abdomen: Present: other Incision OB: Present: other (Incision site appears to have serous drainage with some purulent material as well. There is some erythema that is mild in nature with some evidence of streaking. There is mild calor. Does not extend past the lines that were drawn on the abdomen.) - Labs Labs: Abnormal lab results WBC 11.3 K/mcL (4.3-11.1) H 02/01/18 05:58 RBC 3.43 M/mcL (3.82-4.97) L 02/01/18 05:58 Hgb 9.7 g/dL (11.5-15.4) L D 02/01/18 05:58 Hct 29.0 % (35.3-44.9) L 02/01/18 05:58 Neutrophils # 9.3 K/mcL (1.6-8.9) H 02/01/18 05:58 Potassium 3.4 mEq/L (3.5-5.1) L 02/01/18 00:05 Carbon Dioxide 22 mEq/L (23-29) L 02/01/18 00:05 AST 11 Units/L (13-39) L 02/01/18 00:05 Alkaline Phosphatase 122 Units/L (34-104) H 02/01/18 00:05 Albumin 3.3 g/dL (3.5-5.7) L 02/01/18 00:05 Albumin/Globulin Ratio 0.9 (1.1-2.2) L 02/01/18 00:05 Urine Clarity Cloudy (Clear) A 02/01/18 00:05 Urine Protein 100 mg/dL (Neg-Trace) H 02/01/18 00:05 Urine Blood Large (Negative) H 02/01/18 00:05 Ur Leukocyte Esterase Large (Negative) H 02/01/18 00:05 Urine Microscopic RBC TNTC per hpf (0-3) H 02/01/18 00:05 Urine Microscopic WBC TNTC per hpf (0-3) H 02/01/18 00:05 Ur Squamous Epith Cells Many per lpf (None-Few) H 02/01/18 00:05 Ur Culture Indicated? NO. (NO) A 02/01/18 00:05 Protein/Creatinin Ratio 0.53 mg/mg (0.00-0.20) H 02/01/18 00:05 Urine Total Protein 70 mg/dL (1-14) H 02/01/18 00:05 Consult Discharge Plan - Plan Referrals: Juan Francisco Cortez MD [Primary Care Provider] -
[2018-02-01] MEDS: Gentamicin 440 MG in 0.9 % Sodium Chloride 100 ML IVPB SCH (10:38)
--- NOTE | 2018-02-01 15:27 | General Surgery Consult Note ---
<Gonzalez Field R - Last Filed: 02/01/18 15:21> Date of Encounter: 02/01/18 Time of Encounter: 15:21 Assessment and Plan (1) Abdominal wall abscess at site of surgical wound Current Visit: Yes Status: Acute Plan: Incision and drainage at surgical incision site with probing of subcutaneous tissue to the area of the fluid collection. Wound packing with iodoform packing gauze Continue antibiotic therapy Repeat a.m. labs Continue supportive care and pain management History of Present Illness Consult date: 02/01/18 (Dr. Gomez) History of present illness: Patient is a 22 year old female S/P 6 days low transverse incision . Patient presented to the ED yesterday evening for evaluation of fever, incision drainage and abdominal pain. Patient states symptoms were present for 1 day. Denies nausea, vomiting, change in bowel habits. Patient was noted to have purulent and serous discharge from the incision with an area of dehiscence. Streaking erythema and subcutaneous swelling was observed. Patient was admitted and started on Vancomycin and clindamycin. Today patient reports feeling slightly less pain. Wound is still draining with swelling above incision. Continues to deny nausea, vomiting, and fever. Past Med Surg Social Fam HX - Past Medical History Medical history: other Additional medical history: Anxiety. Depression. Psychiatric history: no psych history - Past Surgical History Surgical History: other Additional surgical history: T&A - Social History Smoking Status: Current every day smoker Smokeless Tobacco Status: No Alcohol use: none Drug use: none - Family History Mother Adopted: Yes Family Member Ethnicity: Non- Living Status: Still Living Hx Family Cardiac Disorders: No Hx Family Respiratory Disorders: No Hx Family Cancer: No Hx Family GI Disorders: No Hx Family Endocrine Disorder: No Hx Family Neuromuscular Disorders: No Hx Family Neurologic Disorders: No Hx Family HEENT Disorders: No Hx Family Autoimmune Disorders: No Medications and Allergies Azithromycin [Zithromax] 250 mg PO DAILY #5 tablet 01/28/18 [Rx] Docusate [Colace] 100 mg PO BID PRN #30 capsule 01/28/18 [Rx] Ferrous Sulfate 325 mg PO DAILY #90 tablet 01/28/18 [Rx] Ibuprofen [Motrin] 600 mg PO Q6HR PRN #30 tablet 01/28/18 [Rx] OxyCODONE/APAP 5/325 [Percocet 5/325 MG] 1 each PO Q6H PRN 5 Days #20 tablet [Rx] Vit/FA 1 each PO DAILY tablet 01/28/18 [Rx] Simethicone [Gas-X] 80 mg PO TID PRN tab.chew 01/28/18 [Rx] 3 Allergy/AdvReac Type Severity Reaction Status Date / Time Amoxicillin [From Augmentin] Allergy Swelling Verified 07/13/17 05:18 of Lip/Tongue/Throat clavulanic acid Allergy Swelling Verified 07/13/17 05:18 [From Augmentin] of Lip/Tongue/Throat Review of Systems All systems PM: The remainder of the systems were reviewed and are negative - Constitutional no fever(s) - Gastrointestinal no nausea, no vomiting - Integumentary erythema, swelling, wounds General Surgery Exam Initial Vital Signs Temp Pulse Resp BP Pulse Ox 98.5 F 128 20 172/114 98 01/31/18 23:31 01/31/18 23:31 01/31/18 23:31 01/31/18 23:31 01/31/18 23:31 - General physical appearance well nourished, no distress, no pain - Eyes PERRL - ENT atraumatic, normocephalic - Neck trachea midline - Respiratory normal expansion, clear to auscultation - Cardiovascular Cardiovascular exam: Present: RRR - Abdomen Abdomen general surgery: Present: bowel sounds present, soft, non tender. Absent: guarding, rebound - Incision Incision: Present: draining (Wound is draining from a 3 cm dehiscenced area on the left aspect of the incision. Erythema and subcutaneous complex fluid collection with fluctuants is present at the lower anterior abdominal wall, appears to be draining from the surgical incision. ), erythema - Integumentary Integumentary general surgery: Present: other (Erythema of the lower anterior abdominal wall. ) - Neurologic Present: CN 2-12 grossly intact - Psychiatric Psychiatric general surgery: Present: A&Ox3, appropriate, speech is normal Exam Initial Vital Signs Temp Pulse Resp BP Pulse Ox 98.5 F 128 20 172/114 98 01/31/18 23:31 01/31/18 23:31 01/31/18 23:31 01/31/18 23:31 01/31/18 23:31 Results - Labs 02/01/18 05:58 08/31/18 00:05 Abnormal lab results WBC 11.3 K/mcL (4.3-11.1) H 02/01/18 05:58 RBC 3.43 M/mcL (3.82-4.97) L 02/01/18 05:58 Hgb 9.7 g/dL (11.5-15.4) L D 02/01/18 05:58 Hct 29.0 % (35.3-44.9) L 02/01/18 05:58 Neutrophils # 9.3 K/mcL (1.6-8.9) H 02/01/18 05:58 Potassium 3.4 mEq/L (3.5-5.1) L 02/01/18 00:05 Carbon Dioxide 22 mEq/L (23-29) L 02/01/18 00:05 AST 11 Units/L (13-39) L 02/01/18 00:05 Alkaline Phosphatase 122 Units/L (34-104) H 02/01/18 00:05 Albumin 3.3 g/dL (3.5-5.7) L 02/01/18 00:05 Albumin/Globulin Ratio 0.9 (1.1-2.2) L 02/01/18 00:05 Urine Clarity Cloudy (Clear) A 02/01/18 00:05 Urine Protein 100 mg/dL (Neg-Trace) H 02/01/18 00:05 Urine Blood Large (Negative) H 02/01/18 00:05 Ur Leukocyte Esterase Large (Negative) H 02/01/18 00:05 Urine Microscopic RBC TNTC per hpf (0-3) H 02/01/18 00:05 Urine Microscopic WBC TNTC per hpf (0-3) H 02/01/18 00:05 Ur Squamous Epith Cells Many per lpf (None-Few) H 02/01/18 00:05 Ur Culture Indicated? NO. (NO) A 02/01/18 00:05 Protein/Creatinin Ratio 0.53 mg/mg (0.00-0.20) H 02/01/18 00:05 Urine Total Protein 70 mg/dL (1-14) H 02/01/18 00:05 All other labs normal. Consult Discharge Plan - Plan Referrals: Juan Francisco Cortez MD [Primary Care Provider] - <Lucian Gomez - Last Filed: 02/01/18 18:56> Date of Encounter: 02/01/18 Review of Systems All systems PM: The remainder of the systems were reviewed and are negative General Surgery Exam Initial Vital Signs Temp Pulse Resp BP Pulse Ox 98.5 F 128 20 172/114 98 01/31/18 23:31 01/31/18 23:31 01/31/18 23:31 01/31/18 23:31 01/31/18 23:31 Exam Initial Vital Signs Temp Pulse Resp BP Pulse Ox 98.5 F 128 20 172/114 98 01/31/18 23:31 01/31/18 23:31 01/31/18 23:31 01/31/18 23:31 01/31/18 23:31 Results - Labs 02/01/18 05:58 02/01/18 00:05 Abnormal lab results WBC 11.3 K/mcL (4.3-11.1) H 02/01/18 05:58 RBC 3.43 M/mcL (3.82-4.97) L 02/01/18 05:58 Hgb 9.7 g/dL (11.5-15.4) L D 02/01/18 05:58 Hct 29.0 % (35.3-44.9) L 02/01/18 05:58 Neutrophils # 9.3 K/mcL (1.6-8.9) H 02/01/18 05:58 Potassium 3.4 mEq/L (3.5-5.1) L 02/01/18 00:05 Carbon Dioxide 22 mEq/L (23-29) L 02/01/18 00:05 AST 11 Units/L (13-39) L 02/01/18 00:05 Alkaline Phosphatase 122 Units/L (34-104) H 02/01/18 00:05 Albumin 3.3 g/dL (3.5-5.7) L 02/01/18 00:05 Albumin/Globulin Ratio 0.9 (1.1-2.2) L 02/01/18 00:05 Urine Clarity Cloudy (Clear) A 02/01/18 00:05 Urine Protein 100 mg/dL (Neg-Trace) H 02/01/18 00:05 Urine Blood Large (Negative) H 02/01/18 00:05 Ur Leukocyte Esterase Large (Negative) H 02/01/18 00:05 Urine Microscopic RBC TNTC per hpf (0-3) H 02/01/18 00:05 Urine Microscopic WBC TNTC per hpf (0-3) H 02/01/18 00:05 Ur Squamous Epith Cells Many per lpf (None-Few) H 02/01/18 00:05 Ur Culture Indicated? NO. (NO) A 02/01/18 00:05 Protein/Creatinin Ratio 0.53 mg/mg (0.00-0.20) H 02/01/18 00:05 Urine Total Protein 70 mg/dL (1-14) H 02/01/18 00:05 All other labs normal. - Attending Attestation I examined this patient and my medical decision-making was reviewed with the Resident Physician. I agree with the documented findings, disposition and treatment plan as described except to the extent set forth below. The patient is seen and evaluated on afternoon rounds with the resident and the clinical nurse practitioner. The patient had a few days ago. She now has a large area of erythema and purulent drainage from the wound. This will need to be opened and packed. It is unclear how much of this infectious findings is secondary to cellulitis and how much is secondary to abscess or hematoma. We will follow along closely with you. I recommended daily dressing changes. Lucian Gomez MD FACS
[2018-02-01] MEDS ORDERED: Ibuprofen 800 MG TABLET PO PRN (16:44)
--- NOTE | 2018-02-01 16:48 | Event Note ---
Date of Encounter: 02/01/18 Time of Encounter: 16:00 ABSCESS INCISION AND DRAINAGE NOTE INDICATION: Concern for Abscess manifested as a tender, swollen and draining area in the superficial subcutaneous tissue. INFORMED CONSENT: The risks and benefits of the procedure including incomplete drainage, scarring, infection and bleeding was explained and the patient verbalized their understanding and wished to proceed with the procedure. PROCEDURE: The area of drainage located with in the surgical incision (S/P C- section) was identified, prepped, and draped in a sterile fashion. Local anesthetic (10 MLs of 2% lidocaine) was introduced subcutaneously over the area of greatest drainage. A linear incision was then made over the area of greatest drainage, with immediate return of a moderate amount of thin, clear peak drainage. No purulent drainage noted. The wound was explored with a hemostat to break up loculations and irrigated with 40MLs saline solution. Once the wound was explored, cleaned, and irrigated, 1/2 inch iodoform gauze packing was placed loosely in the wound. A dressing was then applied. No cultures were obtained given the lack of purulent drainage. FINDINGS: seroma drainage. Most consistent with cellulitis of the abdominal wall superimposed on postoperative seroma. EBL: <5 mL COMPLICATIONS: None. Signature: Zunilda Forbes APRN, ASSISTANT RESEARCH SCIENTIST-C
[2018-02-01] MEDS ORDERED: Ibuprofen 200 MG TABLET PO PRN (17:00)
[2018-02-01] MEDS ORDERED: Ibuprofen 400 MG TABLET PO PRN (17:15)
[2018-02-01] MEDS: *HR* OxyCODONE/APAP 5/325 TABLET PO PRN (18:39)
[2018-02-02] MEDS: *HR* OxyCODONE/APAP 5/325 TABLET PO PRN ×2 (00:55→12:40)
[2018-02-02 07:01] LABS: Basophils % 0.5 %; Eosinophils # 0.2 K/mcL (0.0-0.6); Eosinophils % 2.3 %; Hematocrit 28.5 % (35.3-44.9); Hemoglobin 9.5 g/dL (11.5-15.4); Immature Granulocytes % 0.6 % (0-4); Lymphocytes # 1.3 K/mcL (0.6-4.6); Lymphocytes % 17.3 %; Mean Corpuscular HGB Conc 33.3 g/dL (31.6-35.5); Mean Corpuscular Hemoglobin 28.3 pg (28.0-33.3); Mean Corpuscular Volume 84.8 fL (83.0-100.0); Mean Platelet Volume 11.5 fL (9.4-12.4); Monocytes # 0.8 K/mcL (0.0-1.3); Monocytes % 10.4 %; Neutrophils # 5.3 K/mcL (1.6-8.9); Platelet Count 194 K/mcL (140-400); Red Blood Count 3.36 M/mcL (3.82-4.97); Red Cell Distribution Width 13.4 % (11.5-14.5); Segmented Neutrophils % 68.9 %
[2018-02-02] MEDS: Gentamicin 440 MG in 0.9 % Sodium Chloride 100 ML IVPB SCH (09:04)
[2018-02-02] MEDS: Clindamycin 900 MG/50 ML 900 MG/50 ML IV.SOLN IVPB SCH ×3 (10:39→23:16)
--- NOTE | 2018-02-02 10:58 | General Surgery Progress Note ---
<EmirGonzalez aggarwal Mehrdad - Last Filed: 02/02/18 10:55> Date of Encounter: 02/02/18 Time of Encounter: 10:00 - Assessment and Plan (1) Abdominal wall abscess at site of surgical wound Current Visit: Yes Status: Acute Incision and drainage was performed yesterday, with minimal material drained. This is consistent with cellulitis. Patient is reporting feeling much better than at admission. She remains afebrile and leukocytosis has normalized. Plan: Continue IV antibiotics Wound care, with daily dressing and packing Comfort care and pain management We will continue to follow with recommendations pending further clinical improvement Repeat a.m. labs Subjective Patient reports: feels better, pain is less, voiding w/o difficulty, flatus, bowel movement, afebrile Narrative: Patient reports that she has been feeling much better since incision and drainage yesterday. She states that she has been draining clear fluid from her incision site. She is tolerating her diet without nausea or vomiting. Denies diarrhea or constipation. Denies fever. She is ambulating well without assistance. She does not have any new complaints today. Objective Vital Signs - Last 8 Hours Temp Pulse Resp BP Pulse Ox 02/02/18 09:45 98.5 F 100 18 153/93 96 02/02/18 03:16 97.9 F 95 18 138/91 100 Intake and Output 02/01/18 02/02/18 02/02/18 23:59 07:59 15:59 Intake Total 290 / 290 1100 / 1100 111 / 111 Output Total 500 / 500 400 / 400 Balance -210 / -210 700 / 700 111 / 111 Intake: IV Fluids 50 / 50 300 / 300 111 / 111 Cleocin Premix 900 MG/50 ML 900 50 / 50 50 / 50 mg In 50 ml @ 50 mls/hr IVPB Q8HR [facility] Rx#:[id number] Gentamicin 440 MG In 0.9 % 111 / 111 Sodium Chloride 100 ML @ 94.872 mls/hr IVPB Q24H [facility] Rx#: [id number] Vancocin 1,500 MG In 0.9 % 250 / 250 Sodium Chloride 250 ML @ 166. 667 mls/hr IVPB Q12H [facility] Rx#: [id number] Oral 240 / 240 800 / 800 Output: Urine 500 / 500 400 / 400 Other: Meal Dinner Percent of Meal Consumed 100% - General physical appearance well developed, well nourished, no distress, no pain - ENT atraumatic, normocephalic - Neck Neck exam: trachea midline - Respiratory normal respiratory effort, clear to auscultation - Cardiovascular Cardiovascular exam: Present: RRR - Abdomen Abdomen: Present: bowel sounds present, soft, tender (Mild tenderness at incision sites.) - Integumentary other (Erythema less than yesterday. No fluid collections evident.) - Neurologic CN 2-12 grossly intact - Psychiatric oriented to time, oriented to person, oriented to place, speech is normal - Labs 02/02/18 06:48 02/01/18 00:05 - VTE Reasons for not Prescribing Prophylaxis: Treatment not Indicated - Low risk for VTE Consult Discharge Plan - Plan Referrals: Juan Francisco Cortez MD [Primary Care Provider] - <Lucian Gomez - Last Filed: 02/02/18 15:56> Date of Encounter: 02/02/18 Objective Vital Signs - Last 8 Hours Temp Pulse Resp BP Pulse Ox 02/02/18 15:44 98.4 F 96 16 142/89 97 02/02/18 11:35 98.2 F 82 16 146/93 99 02/02/18 09:45 98.5 F 100 18 153/93 96 Intake and Output 02/01/18 02/02/18 02/02/18 23:59 07:59 15:59 Intake Total 290 / 290 1100 / 1100 411 / 411 Output Total 500 / 500 400 / 400 300 / 300 Balance -210 / -210 700 / 700 111 / 111 Intake: IV Fluids 50 / 50 300 / 300 411 / 411 Cleocin Premix 900 MG/50 ML 900 50 / 50 50 / 50 50 / 50 mg In 50 ml @ 50 mls/hr IVPB Q8HR [facility] Rx#:[id number] Gentamicin 440 MG In 0.9 % 111 / 111 Sodium Chloride 100 ML @ 94.872 mls/hr IVPB Q24H [facility] Rx#: [id number] Vancocin 1,500 MG In 0.9 % 250 / 250 250 / 250 Sodium Chloride 250 ML @ 166. 667 mls/hr IVPB Q12H [facility] Rx#: [id number] Oral 240 / 240 800 / 800 Output: Urine 500 / 500 400 / 400 300 / 300 Other: Meal Dinner Percent of Meal Consumed 100% - Labs 02/02/18 06:48 02/01/18 00:05 - Attending Attestation I examined this patient and my medical decision-making was reviewed with the Resident Physician. I agree with the documented findings, disposition and treatment plan as described except to the extent set forth below. The patient is seen and evaluated on morning rounds with resident. her abdominal all feels much better today. She had a minimum of purulence drained from the wound yesterday. This is mostly cellulitis. She is having some increased drainage today with the packing. Continue current treatment plan
--- NOTE | 2018-02-02 13:19 | OB/GYN Progress Note ---
Date of Encounter: 02/02/18 Time of Encounter: 13:14 - Assessment and Plan (1) Abdominal wall cellulitis Current Visit: Yes Status: Acute Doing better s/p I&D , still with significant drainage. Granulating well. Less redness. No fever at this time. (2) History of Current Visit: Yes Status: Acute Subjective - Subjective Principal diagnosis: wound cellulitis Interval history: Pt s/p I&D of incisional wound yesterday. Doing much better with less tenderness and area of induration is improving. Still with significant serous drainage. Reg diet without n/v. Ambulating. Patient reports: appetite normal, voiding normally, pain well controlled Objective - Vital Signs Latest vital signs: Vital Signs Temp Pulse Resp BP Pulse Ox 02/02/18 09:45 98.5 F 100 18 153/93 96 02/02/18 03:16 97.9 F 95 18 138/91 100 02/01/18 23:49 98.6 F 89 20 156/92 98 02/01/18 19:48 98 F 95 20 154/97 96 02/01/18 17:49 98 F 109 18 158/74 96 Intake and Output 02/01/18 02/02/18 02/02/18 23:59 07:59 15:59 Intake Total 290 / 290 1100 / 1100 111 / 111 Output Total 500 / 500 400 / 400 Balance -210 / -210 700 / 700 111 / 111 Intake: IV Fluids 50 / 50 300 / 300 111 / 111 Cleocin Premix 900 MG/50 ML 900 50 / 50 50 / 50 mg In 50 ml @ 50 mls/hr IVPB Q8HR [facility] Rx#:[id number] Gentamicin 440 MG In 0.9 % 111 / 111 Sodium Chloride 100 ML @ 94.872 mls/hr IVPB Q24H [facility] Rx#: [id number] Vancocin 1,500 MG In 0.9 % 250 / 250 Sodium Chloride 250 ML @ 166. 667 mls/hr IVPB Q12H [facility] Rx#: [id number] Oral 240 / 240 800 / 800 Output: Urine 500 / 500 400 / 400 Other: Meal Dinner Percent of Meal Consumed 100% - I&O's I&O's: Intake & Output 08/29/18 08/30/18 08/31/18 09/01/18 23:59 23:59 23:59 23:59 Intake Total 701 / 801 1211 / 1211 Output Total 850 / 850 400 / 400 Balance -149 / -49 811 / 811 - Exam Lungs: bilateral: normal Chest: Normal S1, Normal S2 Extremities: Present: normal Incision OB: Present: other (2cm x 6 cm wound in left mid lower abdomen and midline 5 cm open area to fascia which is intact. All wounds are pink without necrotic tissue.) - Labs Labs: Abnormal lab results RBC 3.36 M/mcL (3.82-4.97) L 02/02/18 06:48 Hgb 9.5 g/dL (11.5-15.4) L 02/02/18 06:48 Hct 28.5 % (35.3-44.9) L 02/02/18 06:48 Potassium 3.4 mEq/L (3.5-5.1) L 02/01/18 00:05 Carbon Dioxide 22 mEq/L (23-29) L 02/01/18 00:05 AST 11 Units/L (13-39) L 02/01/18 00:05 Alkaline Phosphatase 122 Units/L (34-104) H 02/01/18 00:05 Albumin 3.3 g/dL (3.5-5.7) L 02/01/18 00:05 Albumin/Globulin Ratio 0.9 (1.1-2.2) L 02/01/18 00:05 Urine Clarity Cloudy (Clear) A 02/01/18 00:05 Urine Protein 100 mg/dL (Neg-Trace) H 02/01/18 00:05 Urine Blood Large (Negative) H 02/01/18 00:05 Ur Leukocyte Esterase Large (Negative) H 02/01/18 00:05 Urine Microscopic RBC TNTC per hpf (0-3) H 02/01/18 00:05 Urine Microscopic WBC TNTC per hpf (0-3) H 02/01/18 00:05 Ur Squamous Epith Cells Many per lpf (None-Few) H 02/01/18 00:05 Ur Culture Indicated? NO. (NO) A 02/01/18 00:05 Protein/Creatinin Ratio 0.53 mg/mg (0.00-0.20) H 02/01/18 00:05 Urine Total Protein 70 mg/dL (1-14) H 02/01/18 00:05 Consult Discharge Plan - Plan Referrals: Juan Francisco Cortez MD [Primary Care Provider] -
[2018-02-03 08:06] LABS: Basophils % 0.4 %; Eosinophils # 0.3 K/mcL (0.0-0.6); Eosinophils % 3.3 %; Hematocrit 29.3 % (35.3-44.9); Hemoglobin 9.6 g/dL (11.5-15.4); Immature Granulocytes % 0.7 % (0-4); Lymphocytes # 1.3 K/mcL (0.6-4.6); Mean Corpuscular HGB Conc 32.8 g/dL (31.6-35.5); Mean Corpuscular Hemoglobin 27.3 pg (28.0-33.3); Mean Corpuscular Volume 83.2 fL (83.0-100.0); Monocytes # 0.7 K/mcL (0.0-1.3); Monocytes % 9.8 %; Neutrophils # 5.2 K/mcL (1.6-8.9); Platelet Count 229 K/mcL (140-400); Red Blood Count 3.52 M/mcL (3.82-4.97); Red Cell Distribution Width 13.4 % (11.5-14.5); Segmented Neutrophils % 68.8 %
[2018-02-03] MEDS: Clindamycin 900 MG/50 ML 900 MG/50 ML IV.SOLN IVPB SCH (08:16)
--- NOTE | 2018-02-03 08:43 | OB/GYN Progress Note ---
Date of Encounter: 02/03/18 Time of Encounter: 08:30 - Assessment and Plan (1) Abdominal wall abscess at site of surgical wound Current Visit: Yes Status: Acute We will wait to see if patient can be discharged home later today on oral antibiotics (2) History of Current Visit: Yes Status: Acute Subjective - Subjective Interval history: Patient is doing well this morning is wanting to go home. She states the month and redness has significantly improved she just having some itching from the tape. Patient states she is allergic to the paper tape that we are using on her Medipore tape does not cause some irritation have recommended we changed that out once general surgery evaluate her menses with it safer to go home today Objective - Vital Signs Latest vital signs: Vital Signs Temp Pulse Resp BP Pulse Ox 02/03/18 04:00 98.2 F 79 16 131/79 98 02/02/18 23:43 98.3 F 88 20 143/82 97 02/02/18 20:16 98.5 F 88 14 153/96 97 02/02/18 15:44 98.4 F 96 16 142/89 97 02/02/18 11:35 98.2 F 82 16 146/93 99 02/02/18 09:45 98.5 F 100 18 153/93 96 Intake and Output 02/02/18 02/03/18 02/03/18 23:59 07:59 15:59 Intake Total 50 / 50 300 / 300 Balance 50 / 50 300 / 300 Intake: IV Fluids 50 / 50 300 / 300 Cleocin Premix 900 MG/50 ML 900 50 / 50 50 / 50 mg In 50 ml @ 50 mls/hr IVPB Q8HR [facility] Rx#:[id number] Vancocin 1,500 MG In 0.9 % 250 / 250 Sodium Chloride 250 ML @ 166. 667 mls/hr IVPB Q12H [facility] Rx#: [id number] Other: # Voids 2 - I&O's I&O's: Intake & Output 01/31/18 02/01/18 02/02/18 02/03/18 23:59 23:59 23:59 23:59 Intake Total 701 / 801 1561 / 1561 300 / 300 Output Total 850 / 850 700 / 700 Balance -149 / -49 861 / 861 300 / 300 - Exam Chest: Normal S1, Normal S2 Extremities: Present: normal Abdomen: Present: normal appearance, soft Incision OB: Present: dressed (Cellulitis is markedly improved from outline it is still dressed we will wait until general surgery arrives and is addressing to evaluate with them.) - Labs Labs: Abnormal lab results RBC 3.52 M/mcL (3.82-4.97) L 02/03/18 07:09 Hgb 9.6 g/dL (11.5-15.4) L 02/03/18 07:09 Hct 29.3 % (35.3-44.9) L 02/03/18 07:09 MCH 27.3 pg (28.0-33.3) L 02/03/18 07:09 Potassium 3.4 mEq/L (3.5-5.1) L 02/01/18 00:05 Carbon Dioxide 22 mEq/L (23-29) L 02/01/18 00:05 AST 11 Units/L (13-39) L 02/01/18 00:05 Alkaline Phosphatase 122 Units/L (34-104) H 02/01/18 00:05 Albumin 3.3 g/dL (3.5-5.7) L 02/01/18 00:05 Albumin/Globulin Ratio 0.9 (1.1-2.2) L 02/01/18 00:05 Urine Clarity Cloudy (Clear) A 02/01/18 00:05 Urine Protein 100 mg/dL (Neg-Trace) H 02/01/18 00:05 Urine Blood Large (Negative) H 02/01/18 00:05 Ur Leukocyte Esterase Large (Negative) H 02/01/18 00:05 Urine Microscopic RBC TNTC per hpf (0-3) H 02/01/18 00:05 Urine Microscopic WBC TNTC per hpf (0-3) H 02/01/18 00:05 Ur Squamous Epith Cells Many per lpf (None-Few) H 02/01/18 00:05 Ur Culture Indicated? NO. (NO) A 02/01/18 00:05 Protein/Creatinin Ratio 0.53 mg/mg (0.00-0.20) H 02/01/18 00:05 Urine Total Protein 70 mg/dL (1-14) H 02/01/18 00:05 Vancomycin Trough 11 mcg/mL (5-10) H 02/02/18 12:47 Consult Discharge Plan - Plan Referrals: Juan Francisco Cortez MD [Primary Care Provider] -
[2018-02-03] MEDS: Gentamicin 440 MG in 0.9 % Sodium Chloride 100 ML IVPB SCH (09:12)
[2018-02-03 09:55] VITALS: BP 140/68
--- NOTE | 2018-02-03 10:49 | General Surgery Progress Note ---
Date of Encounter: 02/03/18 Time of Encounter: 10:47 - Assessment and Plan (1) Abdominal abscess Current Visit: Yes Status: Acute postoperative infection vs abdominal wall abscess with dependent drainage. s/p I&D Sunday02/01/2018. May stop packing on the upper abdomen. Left lateral incision area is with copious amounts of serous-cloudy serous drainage; remaining incision is c/d/i. Please note the left lateral incision area was opened during bedside I&D on Sunday02/01/2018. No cultures were obtained at that time d/t minimal output. Pt states the area began draining heavily yesterday. She reports she is feeling much better and there is No odor. Large amount of iodoform gauze in the cavity. Patient states difficulty controlling drainage. Wound vac placed for assistance in granulation tissue formation and drainage control. Wound measures 4cm (L) x 3 cm (W) x 7 cm (D). Consul to SW for HHC and Wound vac approval. OK to d/c form a surgical perspective on PO Bactrim and when wound vac and HHC in place. Also, patient's father and other family member are RNs. If they are competent to change wound vac on Sunday, home health may be avoided. (2) Status post section Current Visit: No Status: Acute Subjective Patient reports: feels better, still having pain, pain is less, voiding w/o difficulty, afebrile, other Narrative: "copious amounts of drainage from the bottom incision." Objective Vital Signs - Last 8 Hours Temp Pulse Pulse Resp BP Pulse Ox 02/03/18 08:00 98.1 F 89 89 16 140/68 02/03/18 04:00 98.2 F 79 16 131/79 98 Intake and Output 02/02/18 02/03/18 02/03/18 23:59 07:59 15:59 Intake Total 50 / 50 300 / 300 401 / 401 Balance 50 / 50 300 / 300 401 / 401 Intake: IV Fluids 50 / 50 300 / 300 161 / 161 Cleocin Premix 900 MG/50 ML 900 50 / 50 50 / 50 50 / 50 mg In 50 ml @ 50 mls/hr IVPB Q8HR [facility] Rx#:[id number] Gentamicin 440 MG In 0.9 % 111 / 111 Sodium Chloride 100 ML @ 94.872 mls/hr IVPB Q24H [facility] Rx#: [id number] Vancocin 1,500 MG In 0.9 % 250 / 250 Sodium Chloride 250 ML @ 166. 667 mls/hr IVPB Q12H [facility] Rx#: [id number] Oral 240 / 240 Other: Percent of Meal Consumed 90% # Voids 2 - General physical appearance well nourished, no distress, no pain - Eyes normal ocular movement - ENT atraumatic, normocephalic - Neck Neck exam: trachea midline - Respiratory normal expansion, normal respiratory effort, clear to auscultation - Cardiovascular Cardiovascular exam: Present: RRR - Abdomen Abdomen: Present: bowel sounds present, soft, tender (Expected) - Incision Incision: Present: draining, serous, open (Left lateral portion of incision open and draining) - Labs 02/03/18 07:09 02/01/18 00:05 - VTE Reasons for not Prescribing Prophylaxis: Treatment not Indicated - Low risk for VTE Consult Discharge Plan - Plan Referrals: Juan Francisco Cortez MD [Primary Care Provider] -
[2018-02-03] MEDS: *HR* OxyCODONE/APAP 5/325 TABLET PO PRN (11:51)
--- NOTE | 2018-02-03 11:51 | Event Note ---
Date of Encounter: 02/03/18 Time of Encounter: 11:49 for d/c planning - Patient Status Disposition: Still a Patient Condition: Fair Functional capacity at discharge: independent ambulation Overall status at discharge: patient is progressing back to baseline - Discharge Instructions Follow Up With: Juan Francisco Cortez MD [Primary Care Provider] - Zunilda Forbes CNP [Advanced Practice Nurse] - 02/12/18 1:00 pm Additional Instructions: Wound VAC: (Do not apply black foam directly to the skin). Black foam to the LLQ every M/W/F beginning 02/06/2018. Remove dressing and packing. Shower with antibacterial soap. Thoroughly dry the skin and keep the panus from overlapping prior to insertion. Insert aprox 3 cm x4 cm piece of black foam in the wound. Apply Alkare wipes to the surrounding tissues. Cover the black foam with a section of the tape in your kit. Ensure the area is sealed. Cut a small hole directly over the black foam. Then apply a Tail (a small piece of the black foam to create a bridge) and cover with section of the tape provide. Cut a small hole in the tape at the end of the tail and apply the circular tubing. Ensure a seal is intact. Turn the wound vac back on and maintain at 125 mmghgb suction. Notify surgery if a seal cannot be maintained. Take your antibiotics as directed. Follow-up in the office as directed. You CAN expect to insert smaller amounts of black foam with each dressing change.
--- NOTE | 2018-02-03 12:09 | Discharge Summary ---
Date of Encounter: 02/03/18 Time of Encounter: 12:00 - Discharge Diagnosis (1) Abdominal wall abscess at site of surgical wound Priority: Primary Status: Acute (2) History of Priority: Secondary Status: Acute - Discharge Medications Home Medications: Azithromycin [Zithromax] 250 mg PO DAILY #5 tablet 01/28/18 [Rx] Docusate [Colace] 100 mg PO BID PRN #30 capsule 01/28/18 [Rx] Ferrous Sulfate 325 mg PO DAILY #90 tablet 01/28/18 [Rx] Ibuprofen [Motrin] 600 mg PO Q6HR PRN #30 tablet 01/28/18 [Rx] OxyCODONE/APAP 5/325 [Percocet 5/325 MG] 1 each PO Q6H PRN 5 Days #20 tablet [Rx] Vit/FA 1 each PO DAILY tablet 01/28/18 [Rx] Simethicone [Gas-X] 80 mg PO TID PRN tab.chew 01/28/18 [Rx] Allergies/Adverse Reactions: 3 Allergy/AdvReac Type Severity Reaction Status Date / Time Amoxicillin [From Augmentin] Allergy Swelling Verified 07/13/17 05:18 of Lip/Tongue/Throat clavulanic acid Allergy Swelling Verified 07/13/17 05:18 [From Augmentin] of Lip/Tongue/Throat Data Procedures and tests throughout hospitalization: Laboratory Tests 02/01/18 02/01/18 02/01/18 05:58 05:58 21:59 WBC 11.3 H RBC 3.43 L Hgb 9.7 L D Hct 29.0 L MCV 84.5 MCH 28.3 MCHC 33.4 RDW 13.5 Plt Count 195 MPV 11.4 Immature Gran % 0.3 Seg Neutrophils % 82.9 Lymphocytes % 7.7 Monocytes % 8.3 Eosinophils % 0.6 Basophils % 0.2 Neutrophils # 9.3 H Lymphocytes # 0.9 Monocytes # 0.9 Eosinophils # 0.1 Basophils # 0.0 Lactic Acid 0.7 Random Gentamicin 2.8 Vancomycin Trough 02/02/18 02/02/18 02/03/18 06:48 12:47 07:09 WBC 7.7 7.5 RBC 3.36 L 3.52 L Hgb 9.5 L 9.6 L Hct 28.5 L 29.3 L MCV 84.8 83.2 MCH 28.3 27.3 L MCHC 33.3 32.8 RDW 13.4 13.4 Plt Count 194 229 MPV 11.5 12.0 Immature Gran % 0.6 0.7 Seg Neutrophils % 68.9 68.8 Lymphocytes % 17.3 17.0 Monocytes % 10.4 9.8 Eosinophils % 2.3 3.3 Basophils % 0.5 0.4 Neutrophils # 5.3 5.2 Lymphocytes # 1.3 1.3 Monocytes # 0.8 0.7 Eosinophils # 0.2 0.3 Basophils # 0.0 0.0 Lactic Acid Random Gentamicin Vancomycin Trough 11 H Labs on day of discharge: Labs from last 24 hours 02/03/18 02/02/18 07:09 12:47 WBC 7.5 RBC 3.52 L Hgb 9.6 L Hct 29.3 L MCV 83.2 MCH 27.3 L MCHC 32.8 RDW 13.4 Plt Count 229 MPV 12.0 Immature Gran % 0.7 Seg Neutrophils % 68.8 Lymphocytes % 17.0 Monocytes % 9.8 Eosinophils % 3.3 Basophils % 0.4 Neutrophils # 5.2 Lymphocytes # 1.3 Monocytes # 0.7 Eosinophils # 0.3 Basophils # 0.0 Vancomycin Trough 11 H Preliminary micro results at discharge 02/01/18 11:58 Wound Culture - Preliminary Abdomen No pathogens isolated. Date of admission: 02/01/18 03:52 Primary care physician: Juan Francisco Cortez MD Consults: 02/01/18 06:14 Consult to Surgery [CONS] Stat Consulting Provider: Lynsey Decker Reason for Consult: abdominal wall abscess Call Completed: Yes 02/03/18 11:21 Consult to Personnel Consultant [CONS] Stat Reason for SW Consult: HHC set up and Wound vac therapy set up. All paperwork has been faxed to [facility] and wound vac therapy initiated in hospital. Needs today. Discharging clinician: Woo Garcia Anticipated date of discharge: 02/03/18 - Patient Status Disposition: Home, Self-Care Condition: Fair Functional capacity at discharge: independent ambulation Overall status at discharge: patient is progressing back to baseline - Discharge Instructions Follow Up With: Zunilda Forbes CNP [Advanced Practice Nurse] - 02/12/18 1:00 pm Juan Francisco Cortez MD [Primary Care Provider] - Woo Garcia DO [Partnered Physician] - Additional Instructions: Wound VAC: (Do not apply black foam directly to the skin). Black foam to the LLQ every M// beginning 02/06/2018. Remove dressing and packing. Shower with antibacterial soap. Thoroughly dry the skin and keep the panus from overlapping prior to insertion. Insert aprox 3 cm x4 cm piece of black foam in the wound. Apply Alkare wipes to the surrounding tissues. Cover the black foam with a section of the tape in your kit. Ensure the area is sealed. Cut a small hole directly over the black foam. Then apply a Tail (a small piece of the black foam to create a bridge) and cover with section of the tape provide. Cut a small hole in the tape at the end of the tail and apply the circular tubing. Ensure a seal is intact. Turn the wound vac back on and maintain at 125 mmghgb suction. Notify surgery if a seal cannot be maintained. Take your antibiotics as directed. Follow-up in the office as directed. You CAN expect to insert smaller amounts of black foam with each dressing change. - Diet and Activity Activity: increase activity as tolerated Diet: advance to your usual diet Hospital Course [employer] Reason for admission: other (Status post section postoperative day #8, wound abscess, cellulitis,) Discharge diagnosis: other (Same) Procedures: Incision and drainage of a abdominal wound abscess Hospital course: Patient is a 20-year-old female who presents emergency room complaining of fevers and not feeling well. Patient had a section approximately 6 days prior to admission had been doing well but her delores dressing and stopped functioning. Patient states that when the tape dressing off she had wound separation on the left side with large amounts of fluid coming from the incision patient came to emergency room was noted have a cellulitis and with the purulent drainage or concern she had wound infection the patient was noted to have some type of boil or abscess on the abdominal wall consultation was made with Gen. surgery. They did assess the patient this was I indeed cultures came back negative we will pack in the incision but it is healing well. Patient was started on antibiotics for possible infection. Patient's hospital course was unremarkable as the days advise patient cellulitis improved drainage improved and she was feeling significantly better by hospital day #2 patient was wanting to go home and she was assessed by the surgical team and he felt it was safe to send her home with a wound VAC patient is going to follow up with them in the middle of the week to have this changed and will follow up with her android developer at the end of the week she will be discharged home on Bactrim DS 1 tablet twice a day for 10 days and she will call if she has any problems. Patient's condition at the time of discharge was stable Time Attestation: Total time spent providing and/or coordinating discharge services: Exam - Constitutional Vitals: Temp Pulse Resp BP Pulse Ox 98.1 F 89 16 140/68 98 02/03/18 08:00 02/03/18 08:00 02/03/18 08:00 02/03/18 08:00 02/03/18 04:00 General appearance IM: A&O X 3, no acute distress - Respiratory Respiratory exam: Present: CTAB - Cardiovascular Cardiovascular exam IM: Present: RRR - GI/Abdominal GI/Abdominal exam IM: normal bowel sounds Incision: skin (left corner of her incision, drainage still noted, wound vac going to be applied prior to discharge, cellulitis significantly better) - VTE Reasons for not Prescribing Prophylaxis: Treatment not Indicated - Low risk for VTE
[2018-02-03] MEDS ORDERED: Aminoglycoside Consult 1 EACH MC ONE (20:19)
== END 2018-02-03 20:20 | disposition home or self-care (01) | DRG 769 ==
LOC: 1NENUPED 23:26 → EMEROOARM 23:26 → 1NENUPED 02-01 03:00
PROVIDERS: ADMIT Student in an Organized Health Care Education/Training Program; ATTEND Student in an Organized Health Care Education/Training Program

== ENCOUNTER 2021-02-25 05:00 | Inpatient (IN) ==
[2021-02-25] MEDS ORDERED: Famotidine 20 MG/2 ML VIAL IVP PRN (05:20)
[2021-02-25] MEDS ORDERED: Metoclopramide 10 MG/2 ML VIAL IVP PRN ×2 (05:20→11:01)
[2021-02-25] MEDS ORDERED: Naloxone 0.4 MG/ML INJ IVP PRN (05:20)
[2021-02-25] MEDS ORDERED: Ringers Solution, Lactated 1,000 ML IVC SCH (05:30)
[2021-02-25 07:02] LABS: Influenza A PCR Negative (Negative); Influenza B PCR Negative (Negative); Resp. Syncytial Virus PCR Negative (Negative)
[2021-02-25 07:04] LABS: SARS-CoV-2 by PCR (In House) Negative (Negative)
[2021-02-25 07:05] LABS: Basophils % 0.4 %; Eosinophils # 0.2 K/mcL (0.0-0.6); Eosinophils % 1.7 %; Hematocrit 34.2 % (35.3-44.9); Hemoglobin 11.5 g/dL (11.5-15.4); Immature Granulocytes % 0.4 % (0-4); Lymphocytes # 1.4 K/mcL (0.6-4.6); Lymphocytes % 14.6 %; Mean Corpuscular HGB Conc 33.6 g/dL (31.6-35.5); Mean Corpuscular Hemoglobin 30.5 pg (28.0-33.3); Mean Corpuscular Volume 90.7 fL (83.0-100.0); Mean Platelet Volume 12.2 fL (9.4-12.4); Monocytes # 0.8 K/mcL (0.0-1.3); Monocytes % 8.2 %; Neutrophils # 7.1 K/mcL (1.6-8.9); Platelet Count 150 K/mcL (140-400); Red Blood Count 3.77 M/mcL (3.82-4.97); Red Cell Distribution Width 14.6 % (11.5-14.5); Segmented Neutrophils % 74.7 %; White Blood Count 9.5 K/mcL (4.3-11.1)
[2021-02-25] MEDS ORDERED: Oxytocin 20 units/ LR 1000 mL 20 UNIT/1,000 ML BAG IVC ONE ×2 (07:09→09:28)
[2021-02-25] MEDS ORDERED: Clindamycin 900 MG/50 ML 900 MG/50 ML IV.SOLN IVPB ONE (07:12)
[2021-02-25] MEDS ORDERED: *HR* OxyCODONE Immed Rel 5 MG TABLET PO PRN (07:24)
[2021-02-25] MEDS ORDERED: *HR* FentaNYL (PF) 100 MCG/2 ML VIAL IVP PRN (07:24)
[2021-02-25] MEDS ORDERED: *HR* Nalbuphine 10 MG/ML AMPUL IV PRN (07:25)
[2021-02-25] MEDS ORDERED: *HR* Morphine Sulfate/PF 10 MG/10 ML AMPUL ONE (07:30)
[2021-02-25] MEDS ORDERED: *HR* FentaNYL (PF) 100 MCG/2 ML VIAL ONE (07:30)
[2021-02-25] MEDS ORDERED: Ondansetron 4 MG/2 ML VIAL ONE (07:31)
[2021-02-25] MEDS ORDERED: Acetaminophen IV 1,000 MG/100 ML BAG IVPB ONE (08:42)
[2021-02-25] MEDS ORDERED: Ketorolac 30 MG/ML VIAL ONE (08:50)
[2021-02-25] MEDS ORDERED: Oxytocin 20 units/ LR 1000 mL 20 UNIT/1,000 ML BAG IVC SCH (11:01)
[2021-02-25] MEDS ORDERED: 0.9 % Sodium Chloride 1,000 ML IVC SCH (11:01)
[2021-02-25] MEDS ORDERED: Rho Immune Globulin 1,500 UNIT SYRINGE IM ONE ×2 (11:01→16:08)
[2021-02-25] MEDS ORDERED: Ondansetron 4 MG/2 ML VIAL IVP PRN (11:01)
[2021-02-25 13:49] LABS: Amphetamine Screen,Urine Negative ng/mL (Cutoff=1000); Barbiturate Screen,Urine Negative ng/mL (Cutoff=200); Benzodiazepines Screen,Urine Negative ng/mL (Cutoff=200); Cannabinoid Screen,Urine Negative ng/mL (Cutoff = 50); Cocaine Screen,Urine Negative ng/mL (Cutoff= 300); Opiate Screen,Urine Negative ng/mL (Cutoff=300); Phencyclidine Screen,Urine Negative ng/mL (Cutoff=25)
[2021-02-25] MEDS ORDERED: Methylergonovine 0.2 MG/ML AMPUL IM ONE ×2 (13:52→14:02)
[2021-02-25 14:40] LABS: Red Cell Distribution Width 14.6 % (11.5-14.5)
[2021-02-25 14:42] LABS: Immature Granulocytes % 0.4 % (0-4)
[2021-02-25 14:45] LABS: Hemoglobin 11.4 g/dL (11.5-15.4)
[2021-02-25 14:47] LABS: Basophils % 0.3 %; Eosinophils # 0.1 K/mcL (0.0-0.6); Eosinophils % 0.9 %; Hematocrit 35.7 % (35.3-44.9); Immature Platelets 12.5 % (1.1-6.1); Lymphocytes # 1.4 K/mcL (0.6-4.6); Lymphocytes % 9.8 %; Mean Corpuscular HGB Conc 31.9 g/dL (31.6-35.5); Mean Corpuscular Volume 93.9 fL (83.0-100.0); Mean Platelet Volume 11.9 fL (9.4-12.4); Monocytes # 0.9 K/mcL (0.0-1.3); Monocytes % 6.5 %; Platelet Count 124 K/mcL (140-400); Segmented Neutrophils % 82.1 %; White Blood Count 13.8 K/mcL (4.3-11.1)
[2021-02-25 15:20] LABS: Neutrophils # 11.3 K/mcL (1.6-8.9)
[2021-02-25 15:23] LABS: Large Platelets Present (Not Present); Platelet Estimate Slight Decrease (Normal)
[2021-02-25] MEDS: Acetaminophen 325 MG TABLET PO SCH ×2 (16:12→21:39)
[2021-02-25] MEDS: Ibuprofen 600 MG TABLET PO SCH ×2 (16:13→21:38)
[2021-02-25] MEDS: Simethicone 80 MG TAB.CHEW PO PRN (16:13)
[2021-02-25] MEDS: Oxytocin 20 units/ LR 1000 mL 20 UNIT/1,000 ML BAG IVC SCH (16:47)
[2021-02-25] MEDS: *HR* Enoxaparin 80 MG/0.8 ML SYRINGE SQ SCH (21:40)
[2021-02-25] MEDS ORDERED: hydrOXYzine pamoate 25 MG CAPSULE PO ONE (21:53)
[2021-02-26] MEDS: *HR* OxyCODONE/APAP 10/325 TABLET PO PRN ×2 (00:58→13:56)
[2021-02-26] MEDS: Oxytocin 20 units/ LR 1000 mL 20 UNIT/1,000 ML BAG IVC SCH (01:55)
[2021-02-26] MEDS: Acetaminophen 325 MG TABLET PO SCH ×4 (04:00→22:34)
[2021-02-26] MEDS: Ibuprofen 600 MG TABLET PO SCH ×4 (04:00→22:34)
[2021-02-26] MEDS ORDERED: Prenatal Vit/FA 1 EACH TABLET PO SCH (09:00)
[2021-02-26] MEDS: *HR* Enoxaparin 80 MG/0.8 ML SYRINGE SQ SCH ×2 (09:48→20:08)
[2021-02-26 10:07] LABS: Hemoglobin 10.5 g/dL (11.5-15.4); Mean Platelet Volume 12.6 fL (9.4-12.4); Monocytes % 8.4 %
[2021-02-26 10:09] LABS: Basophils % 0.3 %; Eosinophils # 0.2 K/mcL (0.0-0.6); Eosinophils % 2.2 %; Hematocrit 31.8 % (35.3-44.9); Immature Granulocytes % 0.5 % (0-4); Immature Platelets 13.7 % (1.1-6.1); Lymphocytes % 10.6 %; Mean Corpuscular Volume 90.9 fL (83.0-100.0); Monocytes # 0.8 K/mcL (0.0-1.3); Neutrophils # 7.6 K/mcL (1.6-8.9); Platelet Count 124 K/mcL (140-400); Red Cell Distribution Width 14.7 % (11.5-14.5); White Blood Count 9.7 K/mcL (4.3-11.1)
[2021-02-26] MEDS: *HR* OxyCODONE/APAP 5/325 TABLET PO PRN (20:35)
[2021-02-26] MEDS: Simethicone 80 MG TAB.CHEW PO PRN (23:46)
[2021-02-27] MEDS: *HR* OxyCODONE/APAP 5/325 TABLET PO PRN (04:30)
[2021-02-27] MEDS: Ibuprofen 600 MG TABLET PO SCH (04:30)
[2021-02-27] MEDS: Acetaminophen 325 MG TABLET PO SCH (04:30)
[2021-02-27] MEDS: *HR* Enoxaparin 80 MG/0.8 ML SYRINGE SQ SCH (08:01)
[2021-02-27 08:44] VITALS: BP 131/84; PULSE 106; TEMP 97.6; O2SAT 99
== END 2021-02-27 11:21 | disposition home or self-care (01) | DRG 785 ==
LOC: 1NENULAB 05:00 → 1NENUOBS 12:02
PROVIDERS: ADMIT Obstetrics & Gynecology; ATTEND Obstetrics & Gynecology